=== PATIENT | male | born 1960 | race Caucasian/White ===

== ENCOUNTER 2020-07-09 21:04 | Inpatient (IN) | payer OTHER ==
[~2020-07-09] VITALS: Ht 172.7 cm; Wt 93.6 kg
[2020-07-09 21:06] VITALS: BP 135/77
[2020-07-09 21:42] LABS: ABSOLUTE NEUTROPHILS 8.8 thou/uL (1.4-8.2); BASOPHILS 0.1 % (0.0-2.0); HEMATOCRIT 38.7 % (42.0-52.0); HEMOGLOBIN 12.4 gm/dL (14.0-18.0); LYMPHOCYTES 8.9 % (24.0-44.0); MCH 28.8 pg (26.0-34.0); MONOCYTES 4.8 % (1.0-8.0); PLATELET COUNT 233 thou/uL (150-400); POLYS 86.2 % (36.0-66.0); RBC 4.31 mil/uL (4.50-6.00); RDW 15.6 % (10.5-14.5); WBC 10.2 thou/uL (4.0-11.0)
[2020-07-09 21:44] LABS: BE(vivo) 16.1 mmol/L (-2 to +3); HCO3 52.4 mmol/L (22.0-26.0); PO2 155.4 mmHg (80.0-100.0); sO2 97.9 % (92.0-98.0)
[2020-07-09 21:45] LABS: PCO2 173.5 mmHg (35.0-45.0); pH 7.098 (7.360-7.450)
[2020-07-09 21:50] LABS: PROTIME 10.4 Seconds (9.3-11.4)
[2020-07-09 21:51] LABS: ALBUMIN 3.1 g/dL (3.4-5.0); BUN 16 mg/dL (7-18); CALCIUM 9.5 mg/dL (8.5-10.1); CHLORIDE 98 mmol/L (98-107); CREATININE 0.6 mg/dL (0.7-1.3); GLUCOSE 212 mg/dL (74-106); POTASSIUM 4.4 mmol/L (3.5-5.1); SGOT 12 U/L (15-37); SGPT 35 U/L (30-65); SODIUM 142 mmol/L (136-145); TOTAL BILIRUBIN 0.5 mg/dL (0.2-1.0); TOTAL PROTEIN 7.7 g/dL (6.4-8.2)
[2020-07-09 21:55] LABS: CO2 > 45 mmol/L (21-32)
[2020-07-09] MEDS ORDERED: CARVEDILOL6.25 M1 PO (22:26)
[2020-07-09] MEDS ORDERED: PROTONIX40 M2 PO (22:27)
[2020-07-09] MEDS ORDERED: PROAIR HFA8.5 GM INH (22:30)
[2020-07-09] MEDS ORDERED: SYMBICORT160 MCG/4. INH (22:30)
[2020-07-09] MEDS ORDERED: TRAZODONE HCL50 MG PO (22:31)
[2020-07-09] MEDS ORDERED: HYDROXYZINE PAM50 MG PO (22:31)
[2020-07-09] MEDS ORDERED: OMEPRAZOLE40 MG PO (22:31)
[2020-07-09 22:35] LABS: URINE BILIRUBIN NEGATIVE (Negative); URINE BLOOD TRACE (Negative); URINE CLARITY CLEAR; URINE COLOR YELLOW; URINE GLUCOSE-RANDOM* NEGATIVE (Negative); URINE KETONES NEGATIVE (Negative); URINE LEUKOCYTES-REFLEX NEGATIVE (Negative); URINE NITRITE-REFLEX NEGATIVE (Negative); URINE PROTEIN (DIPSTICK) 1+ (Negative); URINE SPECIFIC GRAVITY >= 1.030 (1.005-1.035); URINE UROBILINOGEN 0.2 E.U./dl (0.2-1.0)
[2020-07-09 22:49] LABS: BE(vivo) 17.3 mmol/L (-2 to +3); HCO3 54.8 mmol/L (22.0-26.0); PO2 352.3 mmHg (80.0-100.0); pH 7.056 (7.360-7.450); sO2 99.5 % (92.0-98.0)
[2020-07-09 22:50] LABS: PCO2 199.8 mmHg (35.0-45.0)
[2020-07-09 23:03] LABS: BACTERIA-REFLEX 1-9 Few /HPF (None Seen); CRYSTALS None Seen /LPF (None Seen); FINE GRANULAR CASTS 4-10 Moderate /LPF (None Seen); HYALINE CASTS 4-10 Moderate /LPF (None Seen); MUCUS >6 Heavy strn/LPF (None Seen); SQUAMOUS 4-10 Moderate /LPF (0-3); URINE RBC 3-10 Few /HPF (0-2); URINE WBC-REFLEX 0-5 Rare /HPF (0-5)
[2020-07-09 23:38] VITALS: BP 113/79
[2020-07-10] VITALS (113 sets, daily range): BP systolic 78–159; BP diastolic 49–121
--- NOTE | 2020-07-10 01:17 | NUR ---
0010-ADMIT TO UNIT FROM ED. PT INTUBATED, ON PROPOFOL, OZUNA ON PLACE. COPIOUS THICK, CLEAR ORAL AND THICK, MONTALVO INLINE SECRETIONS. OG PLACED TO LIS WITH LIGHT GREEN SECRETIONS. OBVIOUS TREMORING, SHAKING, AND MOVING OF LEGS. STARTED ON VERSED AND MAINTENCE FLUIDS. 0055-SPOKE WITH DR. SARGENT ABOUT ADMIT, NO CHANGES TO VENT SETTINGS.
[2020-07-10 05:15] LABS: HEMATOCRIT 29.9 % (42.0-52.0); MCH 28.6 pg (26.0-34.0); MCHC 31.7 g/dL (28.0-37.0); MCV 90.1 fL (80.0-100.0); RBC 3.31 mil/uL (4.50-6.00); RDW 15.8 % (10.5-14.5); WBC 13.3 thou/uL (4.0-11.0)
[2020-07-10 05:28] LABS: HEMOGLOBIN 9.5 gm/dL (14.0-18.0)
[2020-07-10 05:43] LABS: ALBUMIN 2.3 g/dL (3.4-5.0); CREATININE 0.5 mg/dL (0.7-1.3); TOTAL BILIRUBIN 0.6 mg/dL (0.2-1.0); TOTAL PROTEIN 5.6 g/dL (6.4-8.2)
--- NOTE | 2020-07-10 07:36 | NUR ---
ORDERS FOR EVAL AND TREAT. Pt IS INTUBATED AND SEDATED. WILL HOLD ON P.T EVAL AND AWAIT NEW ORDERS WHEN APPROPRIATE
--- NOTE | 2020-07-10 08:24 | NUR ---
If remains intubated > 48hr, recommend start enteral nutrition of vital HP at 30ml/hr (3 cartons per day if no feeding pump)
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
--- NOTE | 2020-07-10 13:31 | NUR ---
FAXED CLINICAL UPDATE TO [facility] SPOKE WITH KASHIF IN ADM SHE RECEIVED UPDATE.
--- NOTE | 2020-07-10 13:40 | HC ---
[facility] [place] [address] CONSULTATION Name: JIMMY TREVINO Room #: 240-P ADM IN M.R.#: [id number] Admission: 07/09/20 Attend Phys: Zev Arvizu MD Discharge: Date of : 58 Report #: [id number] THIS REPORT FOR: cc: FAM - Family physician unknown FAM - Family physician unknown Reji Macedo MD ~ DATE OF SERVICE: 07/10/2020 INFECTIOUS DISEASE CONSULTATION ATTENDING PHYSICIAN: Dr. Lalo Keenan REASON FOR EVALUATION: Pneumonitis, complicated by respiratory failure with a marked elevation of carbon dioxide. HISTORY OF PRESENT ILLNESS: Chart reviewed, patient examined. The patient is a 59-year-old gentleman with extensive medical history, has underlying severe COPD with a baseline requirements of 4 liters per nasal cannula as well as some hypertension. He does reside in a facility, apparently was hospitalized in May of last year, diagnosed with COVID-19 infection, apparently date of testing was 06/16/2020. He did receive dexamethasone, remdesivir and baricitinib. He was found unresponsive, showed to be markedly obtunded, and was found to be hypoxemic with saturations in the low 80s on 4 liters, presented to the Emergency Room, was found to have some x-ray changes as well as CT changes, none of which suggest a PE, but some bilateral infiltrates, may be resolving pneumonitis due to COVID. Urinalysis was otherwise unremarkable. D-dimer was in the normal range, still have positive COVID test. Initial ABGs: pH 7.098, pCO2 of 173.5, pO2 of 155.4 on 5 liters, was empirically started on antibiotics with Zosyn and vancomycin as well as dexamethasone. At this point, he is intubated. He is sedated. ALLERGIES: None known. CURRENT MEDICATIONS: Include enoxaparin, vancomycin, famotidine, Zosyn, propofol, dexamethasone, sounds Versed as well. ALLERGIES: None known medicines. PAST MEDICAL HISTORY: As described above, history of previous skull fracture, has known COPD, hypertension, peptic ulcer disease, reflux. SOCIAL HISTORY: Ethanol abuse in the past. Former smoker. Previous marijuana use. FAMILY HISTORY: Noncontributory. [address] [address] CONSULTATION Name: URIELJIMMY PERDOMO Room #: [address] [place] [address] IN ..#: [id number] Admission: 07/09/20 Attend Phys: Zev Arvizu MD Discharge: Date of : 58 Report #: [id number] REVIEW OF SYSTEMS: Not obtainable. PHYSICAL EXAMINATION: GENERAL: Appears chronically ill, undernourished older than his stated age. VITAL SIGNS: Temperature 99.3 oral, pulse 97, respirations 21, blood pressure 108/55. SKIN: Warm, dry, no rashes. HEENT: ET, OG in place. NECK: Supple. LUNGS: Diminished overall, few scattered coarse breath sounds. ABDOMEN: Mildly distended, soft. There are no apparent peritoneal signs. EXTREMITIES: There is a PICC line in the right upper extremity. GENITOURINARY AND RECTAL: Deferred. LABORATORY DATA: Blood cultures sterile thus far. Chest x-ray from this morning shows improved aeration, mild atelectasis and pneumonia remains in the lung bases. Electrolytes: Sodium 146, potassium 4.0, chloride 106, bicarbonate is 37, anion gap of 3, BUN and creatinine 13 and 0.5, glucose 120. LFTs unremarkable. Albumin 2.3. Total protein 5.6. CTA chest PE protocol, no evidence of PE, moderate emphysematous changes in both lungs. Ground glass opacities in the mid upper lobe and lung bases, compression fracture of the mid thoracic spine, suspected chronic healed right rib fractures. CBC: White count of 13.3, H and H 9.5 that is down from 12.3, hematocrit 29.9, platelets of 184. Coronavirus PCR was still positive. ProBNP of 77. Urinalysis, 0-5 white cells. D-dimer 0.37. Procalcitonin less than 0.05. Lactic acid 1.0. ASSESSMENT AND PLAN: Pneumonitis, suspect acute on chronic problem with marked hypercarbia slid to respiratory failure in a patient that was already severely compromised certainly could have aspirated in this setting, it is difficult to interpret x-ray, sometimes due to the deranged architecture of the lungs. At this point, we will continue empiric therapy with vancomycin and Zosyn should give this reasonable coverage. If indeed this is sequelae to the COVID-19, I think there is any role for antiviral therapy at this point is more typical immune system response. Continue corticosteroids. He remains critically ill. It is difficult to ascertain whether he will survive this. <ELECTRONICALLY SIGNED> By: Reji Macedo MD 07/10/20 1340 0935 1155 Reji Macedo MD /nt
[2020-07-10 17:30] LABS: BE(vivo) 13.2 mmol/L (-2 to +3); HCO3 38.2 mmol/L (22.0-26.0); pH 7.492 (7.360-7.450); sO2 90.5 % (92.0-98.0)
[2020-07-10 17:31] LABS: PO2 55.1 mmHg (80.0-100.0)
--- NOTE | 2020-07-10 18:31 | NUR ---
VAT PLACED A 5FRTLCL IN RT IJ. PLEASE SEE NI FOR DETAILS
--- NOTE | 2020-07-10 19:16 | NUR ---
assumed care of pt 0700. pt not following commands during sedation vacation but does withdrawl from pain. began showing signs for tremors and what thought to possibly be seizure activity. providers aware, thinking more related to alcohol abuse histoy...1230 updated daughter on pt status, consent gained for central line. 1800 critical abg paiged to Dr. Hollis, orders recieved. adequate output. afebrile. progressing in plan of care.
[2020-07-11] VITALS (73 sets, daily range): BP systolic 56–137; BP diastolic 21–92
[2020-07-11 04:27] LABS: MCH 28.8 pg (26.0-34.0); MCHC 32.2 g/dL (28.0-37.0); MCV 89.4 fL (80.0-100.0); RBC 3.47 mil/uL (4.50-6.00); RDW 15.6 % (10.5-14.5); WBC 6.2 thou/uL (4.0-11.0)
[2020-07-11 04:33] LABS: CALCIUM 8.9 mg/dL (8.5-10.1); CREATININE 0.7 mg/dL (0.7-1.3); POTASSIUM 3.4 mmol/L (3.5-5.1)
--- NOTE | 2020-07-11 05:50 | NUR ---
SEDATION TITRATED TO KEEP BP IN ORDERED RANGE BUT ALSO TO KEEP PT COMFORTABLE. TREMORS NOTED AFTER SEDATION DOWN TO PROPOFOL 20MCG/KG/MIN, FENTANYL 50MCG/HR, VERSED 2MG/HR. ALSO NOTED SIGNIFICANT INCREASE IN BP. VERSED TITRATED BACK UP TO KEEP PT COMFORTABLE AND TREMORS DECREASED. PT DID NOT FOLLOW COMMANDS OR HAVE PURPOSEFUL MOVEMENTS AT TIME OF DECREASED SEDATION.
[2020-07-11 07:09] LABS: GLYCOHEMOGLOBIN (HGB A1C) 5.6 % (4.8-5.6)
--- NOTE | 2020-07-11 18:42 | NUR ---
PATIENT NOT PROGRESSING TOWARDS PLAN OF CARE. SEDATION VACATION TODAY. PATIENT OPENS EYES. NO COMMANDS.
[2020-07-11 19:56] LABS: BE(vivo) 8.2 mmol/L (-2 to +3); HCO3 37.2 mmol/L (22.0-26.0); PO2 95.1 mmHg (80.0-100.0); sO2 96.4 % (92.0-98.0)
[2020-07-11 19:58] LABS: PCO2 73.8 mmHg (35.0-45.0)
[2020-07-12] VITALS (61 sets, daily range): BP systolic 92–142; BP diastolic 48–88
[2020-07-12 04:45] LABS: HEMATOCRIT 31.4 % (42.0-52.0); HEMOGLOBIN 10.1 gm/dL (14.0-18.0); MCH 28.9 pg (26.0-34.0); MCHC 32.2 g/dL (28.0-37.0); MCV 89.8 fL (80.0-100.0); RBC 3.49 mil/uL (4.50-6.00); RDW 15.8 % (10.5-14.5); WBC 5.8 thou/uL (4.0-11.0)
[2020-07-12 05:31] LABS: CALCIUM 8.8 mg/dL (8.5-10.1); CREATININE 0.5 mg/dL (0.7-1.3); POTASSIUM 3.3 mmol/L (3.5-5.1)
--- NOTE | 2020-07-12 06:51 | NUR ---
PT BECOMES AGITATED AND EXHIBITS TREMORS WITH ALL NURSING CARES, WILL STOP AFTER BEING LEFT ALONE FOR SOME TIME. DOES NOT FOLLOW COMMANDS, WITHDRAWS TO PAIN, PUPILS REACTIVE
--- NOTE | 2020-07-12 18:54 | NUR ---
PATIENT DOES NOT PROGRESS IN PLAN OF CARE. NO SIGNIFICANT EVENTS. SPOKE TO SISTER JOSSUE AND GAVE UP DATE ABOUT PATIENT STATUS.
[2020-07-13] VITALS (56 sets, daily range): BP systolic 98–150; BP diastolic 54–90
[2020-07-13 04:25] LABS: HEMATOCRIT 31.2 % (42.0-52.0); MCH 28.5 pg (26.0-34.0); MCHC 32.1 g/dL (28.0-37.0); MCV 88.7 fL (80.0-100.0); RBC 3.52 mil/uL (4.50-6.00); RDW 16.3 % (10.5-14.5); WBC 5.2 thou/uL (4.0-11.0)
[2020-07-13 04:46] LABS: CALCIUM 8.4 mg/dL (8.5-10.1); CREATININE 0.5 mg/dL (0.7-1.3); POTASSIUM 3.2 mmol/L (3.5-5.1)
--- NOTE | 2020-07-13 06:11 | NUR ---
Patient remains on 40 FiO2 and a PEEP of 5. Does not tolerate sedation vacations. Vent alarms with high tidal volumes and inconsistent respires. Patient becomes tachycardiac and starts to tremor uncontrollably. Does not follow commands, track or have any purposeful movement. Postive gag and cough. VSS, adequate urine output. Remains on Versed, propofol and fentanyl gtt for vent management. Still requiring high mechanical support and close monitoring, therefore is not progessing towards goals.
--- NOTE | 2020-07-13 09:22 | NUR ---
Recommend start enteral nutrition. Changed goal rate to 40ml/hr or 4 cartons per day if no feeding pump.
--- NOTE | 2020-07-13 13:43 | NUR ---
ON-GOING ASSESSMENT: CM REVIEWED CHART. PT REMAINS ON THE VENT, 40 PERCENT FI02. PT IS NOT READY FOR WEANING YET. CM FAXED UPDATED CLINICAL TO [facility] FOR REHAB MEDIC[facility]. CM WILL CONTINUE TO FOLLOW TO ASSIST NEEDED.
--- NOTE | 2020-07-13 16:59 | NUR ---
1400 SEDATION VACATION DONE AND PT WILL NOD YES/NO TO QUESTIONS, FOLLOW SIMPLE COMMANDS IN ALL EXTREMITIES. WEANING SEDATION TOLERATED. STARTED ON TUBE FEEDING AND WATER FLUSHES. TOLERATING WELL. WILL CONTINUE TO MONITOR PATIENT.
[2020-07-14] VITALS (81 sets, daily range): BP systolic 89–190; BP diastolic 49–100
[2020-07-14 05:09] LABS: BE(vivo) 13.1 mmol/L (-2 to +3); HCO3 41.1 mmol/L (22.0-26.0); PO2 72.8 mmHg (80.0-100.0); pH 7.373 (7.360-7.450); sO2 93.6 % (92.0-98.0)
[2020-07-14 05:10] LABS: PCO2 72.3 mmHg (35.0-45.0)
[2020-07-14 05:16] LABS: HEMATOCRIT 32.5 % (42.0-52.0); HEMOGLOBIN 10.5 gm/dL (14.0-18.0); MCH 28.5 pg (26.0-34.0); MCHC 32.3 g/dL (28.0-37.0); MCV 88.3 fL (80.0-100.0); RBC 3.68 mil/uL (4.50-6.00); RDW 16.2 % (10.5-14.5); WBC 7.6 thou/uL (4.0-11.0)
[2020-07-14 05:26] LABS: ALBUMIN 2.4 g/dL (3.4-5.0); CALCIUM 8.8 mg/dL (8.5-10.1); CREATININE 0.6 mg/dL (0.7-1.3); MAGNESIUM 1.8 mg/dL (1.8-2.4); POTASSIUM 3.2 mmol/L (3.5-5.1); TOTAL BILIRUBIN 0.3 mg/dL (0.2-1.0); TOTAL PROTEIN 5.8 g/dL (6.4-8.2)
--- NOTE | 2020-07-14 06:37 | NUR ---
Vent settings unchanged. Patient remains on fentanyl, propofol, and versed for ventilation management. Patient would wake up and seem to shake head to simple questions. Moves all extremities. Still tremors entire body occasionally. Not progessing towards goals.
--- NOTE | 2020-07-14 14:14 | NUR ---
FAXED CLINICAL UPDATE TO [facility] RECEIVED CONFIRMATION AND SPOKE WITH KASHIF IN ADM.
--- NOTE | 2020-07-14 19:06 | NUR ---
PATIENT CONTINUING NURSING PLAN OF CARE. SOME PROGRESSION TODAY WITH CPAP TRIALING FOR 2 HOURS. PATIENT SEDATION CONTINUES. TOLERATING TUBE FEEDS WELL. NO CALLS FROM FAMILY ASKING FOR UPDATES.
[2020-07-15] VITALS (39 sets, daily range): BP systolic 86–152; BP diastolic 40–90
[2020-07-15 05:21] LABS: HEMATOCRIT 29.2 % (42.0-52.0); HEMOGLOBIN 9.5 gm/dL (14.0-18.0); MCHC 32.6 g/dL (28.0-37.0); RBC 3.28 mil/uL (4.50-6.00); RDW 16.5 % (10.5-14.5); WBC 5.1 thou/uL (4.0-11.0)
[2020-07-15 05:22] LABS: ANION GAP < 0 mmol/L (7-16); BUN 8 mg/dL (7-18); CALCIUM 8.5 mg/dL (8.5-10.1); CHLORIDE 105 mmol/L (98-107); CO2 42 mmol/L (21-32); CREATININE 0.5 mg/dL (0.7-1.3); GLUCOSE 123 mg/dL (74-106); POTASSIUM 3.4 mmol/L (3.5-5.1); SODIUM 146 mmol/L (136-145)
--- NOTE | 2020-07-15 06:16 | NUR ---
Weaned off of Versed gtt. Still on Fentanyl and propofol for vent management. No vent changes. VSS. Progressing towards goals. Plan to CPAP trial again today.
--- NOTE | 2020-07-15 09:56 | NUR ---
ON THE VENT, LIGHTLY SEDATED. DURING SEDATION VACATION PATIENT BECOMES TACHYCARDIC, FOLLOWS SOME COMMANDS BUT NOT CONSISTENTLY. VITALS STABLE AND ON FENTANYL GTT FOR PAIN. ASSESSMENT DOCUMENTED. TOLERATING TUBEFEEDING PER OGT WITH MINIMAL RESIDUALS. WILL CONTINUE WITH POC.
[2020-07-16] VITALS (35 sets, daily range): BP systolic 111–156; BP diastolic 66–95
[2020-07-16 06:34] LABS: HEMATOCRIT 34.1 % (42.0-52.0); HEMOGLOBIN 10.8 gm/dL (14.0-18.0); MCH 27.9 pg (26.0-34.0); MCHC 31.7 g/dL (28.0-37.0); MCV 87.9 fL (80.0-100.0); RBC 3.88 mil/uL (4.50-6.00); RDW 16.2 % (10.5-14.5); WBC 8.4 thou/uL (4.0-11.0)
[2020-07-16 06:44] LABS: CALCIUM 9.8 mg/dL (8.5-10.1); CREATININE 0.5 mg/dL (0.7-1.3)
[2020-07-16 06:45] LABS: POTASSIUM 3.6 mmol/L (3.5-5.1)
--- NOTE | 2020-07-16 07:30 | NUR ---
ASSUMMED CARE OF PATIENT FROM ANUSHKA ZABALA THE NIGHT NURSE AT 0645. SEDATION OFF AT 0650 AND PATIENT IS LOOKING AROUND, FOLLOWING SIMPLE COMMANDS. O2 SAT AND RESP RATE ARE STABLE, VSS, PLEASE REFER TO VS RECORD. PLACED BACK ON SEDATION.
[2020-07-16 09:14] LABS: BE(vivo) 15.4 mmol/L (-2 to +3); HCO3 42.3 mmol/L (22.0-26.0); PO2 81.3 mmHg (80.0-100.0); pH 7.431 (7.360-7.450); sO2 95.9 % (92.0-98.0)
[2020-07-16 09:15] LABS: PCO2 65.1 mmHg (35.0-45.0)
--- NOTE | 2020-07-16 09:30 | NUR ---
PATIENT PLACED ON CPAP AT 0815 WITH ABG'S DRAWN AT 0915. RESULTS NOTED AND PATIENT REMAINS ON CPAP AT THIS TIME. PRECEDEX AND FENTANYL DRIPS CONTINUE.
--- NOTE | 2020-07-16 10:26 | NUR ---
ASSUMMED CARE OF THIS PATIENT FROM THE NIGHT NURSE SHERICE AT 0700 TODAY. PATIENT IS ALERT AND COOPERATIVE. PROGRESSING TOWARDS OUTCOME GOALS. REPORT CALLED TO JENNIFER ZABALA ON 3W.
--- NOTE | 2020-07-16 12:45 | NUR ---
DR HANDY ROUNDED AND REVIEWED ABG'S AND WEANING PARAMATERS. PATIENT IS WEAK AND RESTLESS AT TIMES, KICKING FEET OUT OF BED. PLACED BACK AND VENT AND WILL WEAN PRECEDEX PATIENT TOLERATES IT. WILL CONTINUE TO MONITOR.
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
--- NOTE | 2020-07-16 19:16 | NUR ---
PATIENT IS PRORESSING TOWARDS OUTCOME GOALS HE IS TOLERATING CPAP TRIALS, INCREASING RATE OF TUBE FEEDING, AND VSS WITH DECREASING OF PRECEDEX. WILL CONTINUE TO MONITOR.
[2020-07-17] VITALS (31 sets, daily range): BP systolic 112–157; BP diastolic 61–90
[2020-07-17 06:11] LABS: HEMATOCRIT 32.6 % (42.0-52.0); HEMOGLOBIN 10.6 gm/dL (14.0-18.0); MCH 28.5 pg (26.0-34.0); MCHC 32.7 g/dL (28.0-37.0); MCV 87.2 fL (80.0-100.0); RBC 3.74 mil/uL (4.50-6.00); RDW 16.2 % (10.5-14.5); WBC 7.8 thou/uL (4.0-11.0)
[2020-07-17 06:31] LABS: CALCIUM 8.9 mg/dL (8.5-10.1); CREATININE 0.4 mg/dL (0.7-1.3); POTASSIUM 3.4 mmol/L (3.5-5.1)
--- NOTE | 2020-07-17 06:44 | NUR ---
No vent settings changes overnight. Patient restless throughout night, needing PRN ativan occasionally when calming down. No more visible tremors. Inconsistently follows commands and nods heads. Plan to CPAP today. Progressing towards plans of care.
[2020-07-17 09:17] LABS: BE(vivo) 12.3 mmol/L (-2 to +3); HCO3 38.9 mmol/L (22.0-26.0); PCO2 60.7 mmHg (35.0-45.0); PO2 69.4 mmHg (80.0-100.0); pH 7.425 (7.360-7.450); sO2 93.8 % (92.0-98.0)
--- NOTE | 2020-07-17 14:28 | NUR ---
on-going assessment: CM REVIEWED CHART. PT REMAINS SEDATED ON THE VENT. PT IS ON PRECEDEX GTT. PER PULM PT IS TOLERATING CPAP BUT NOT READY TO EXTUBATE AT THIS TIME DUE TO MENTAL STATUS. CM WILL CONTINUE TO FOLLOW TO ASSIST NEEDED.
--- NOTE | 2020-07-17 18:20 | NUR ---
EXTUBATED AT 1245 FOLLOWING SUCCESSFUL WEANING TRIAL. FOLLOWING COMMANDS AND VERBALIZING. VOICE VERY GRAVELY AND HARD TO UNDERSTAND. VERY AGITATED AND COMBATIVE AT TIMES. PRECEDEX CONTINUES AT 1.4 MCG/KG/HR. RECIEVED 2MG DOSE OF ATIVAN WHEN EXTREMELY AGITATED. REQUESTED TO GO SMOKE A CIGARETTE AND TO MOVE HIS BED UP AGAINST THE WALL. REORIENTED PATIENT TO PLACE AND EXPLAINED WHY HE COULD NOT SMOKE OR MOVE HIS BED. CONTINUES TO BE COMBATIVE AT TIMES.
[2020-07-18] VITALS (32 sets, daily range): BP systolic 128–160; BP diastolic 72–89
[2020-07-18 05:44] LABS: HEMATOCRIT 35.2 % (42.0-52.0); HEMOGLOBIN 11.5 gm/dL (14.0-18.0); MCH 28.6 pg (26.0-34.0); MCHC 32.8 g/dL (28.0-37.0); MCV 87.1 fL (80.0-100.0); RBC 4.04 mil/uL (4.50-6.00); RDW 16.1 % (10.5-14.5)
[2020-07-18 06:05] LABS: CALCIUM 9.6 mg/dL (8.5-10.1); CREATININE 0.5 mg/dL (0.7-1.3); POTASSIUM 3.3 mmol/L (3.5-5.1)
--- NOTE | 2020-07-18 11:44 | NUR ---
SPOKE WITH SPEECH AT 1144. WILL REVISIT ON MONDAY AFTER DECIDING PATIENT DOES NOT SEEM TO BE READY FOR SWALLOW EVAL BASED ON PATIENT'S COMBATIVE STATE AND CONFUSION.
--- NOTE | 2020-07-18 18:02 | NUR ---
ASSUMED CARE AT 0700. PATIENT SLOWLY PROGRESSING TOWARDS THE PLAN OF CARE. PRECEDEX GTT STILL MAXED OUT HOWEVER PATIENT COMBATIVE AT TIMES.
[2020-07-19] VITALS (32 sets, daily range): BP systolic 107–154; BP diastolic 68–99
[2020-07-19 05:00] LABS: HEMATOCRIT 36.8 % (42.0-52.0); HEMOGLOBIN 12.1 gm/dL (14.0-18.0); MCH 28.6 pg (26.0-34.0); MCHC 32.9 g/dL (28.0-37.0); MCV 86.7 fL (80.0-100.0); RBC 4.25 mil/uL (4.50-6.00); RDW 16.1 % (10.5-14.5); WBC 7.3 thou/uL (4.0-11.0)
[2020-07-19 05:05] LABS: CALCIUM 9.1 mg/dL (8.5-10.1); CREATININE 0.4 mg/dL (0.7-1.3)
[2020-07-19 05:43] LABS: POTASSIUM 3.2 mmol/L (3.5-5.1)
--- NOTE | 2020-07-19 17:19 | NUR ---
ASSUMED CARE AT 0700. PATIENT CONTINUES TO BE COMBATIVE AT TIMES AND ATTEMPTS TO LEAVE BED MULTIPLE TIMES DESPITE EDUCATION. PATIENT SLOWLY PROGRESSING TOWARDS THE PLAN OF CARE EVIDENCED BY IMPROVED SWALLOWING AND EATING.
[2020-07-20] VITALS (22 sets, daily range): BP systolic 87–145; BP diastolic 49–81
[2020-07-20 05:45] LABS: HEMATOCRIT 36.4 % (42.0-52.0); HEMOGLOBIN 11.8 gm/dL (14.0-18.0); MCH 28.3 pg (26.0-34.0); MCHC 32.3 g/dL (28.0-37.0); MCV 87.7 fL (80.0-100.0); RBC 4.15 mil/uL (4.50-6.00); RDW 16.3 % (10.5-14.5); WBC 8.1 thou/uL (4.0-11.0)
[2020-07-20 06:02] LABS: CREATININE 0.4 mg/dL (0.7-1.3); POTASSIUM 3.4 mmol/L (3.5-5.1)
[2020-07-20 10:05] LABS: MAGNESIUM 1.8 mg/dL (1.8-2.4); PHOSPHORUS 3.6 mg/dL (2.5-4.9)
--- NOTE | 2020-07-20 10:53 | NUR ---
POC UPDATE: PT IS RECEIVING COVID THERAPIES. ON 4.5 O2 NC. PT PRESENTS W/COMBATIVENSS. CONT W/PRECEDX. PT HAS IMPROVED SWALLOWING AND EATING, PLANS FOR ST EVAL TODAY.
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
[2020-07-21] VITALS (74 sets, daily range): BP systolic 36–151; BP diastolic 21–81
[2020-07-21 05:38] LABS: HEMATOCRIT 36.3 % (42.0-52.0); HEMOGLOBIN 11.9 gm/dL (14.0-18.0); MCH 28.8 pg (26.0-34.0); MCHC 32.9 g/dL (28.0-37.0); MCV 87.5 fL (80.0-100.0); RBC 4.14 mil/uL (4.50-6.00); RDW 16.1 % (10.5-14.5); WBC 9.5 thou/uL (4.0-11.0)
[2020-07-21 06:14] LABS: CALCIUM 9.5 mg/dL (8.5-10.1); CREATININE 0.5 mg/dL (0.7-1.3); MAGNESIUM 1.9 mg/dL (1.8-2.4); PHOSPHORUS 3.4 mg/dL (2.5-4.9); POTASSIUM 3.5 mmol/L (3.5-5.1)
--- NOTE | 2020-07-21 06:35 | NUR ---
PT REQUIRING ATIVAN TO CALM AGITATION, WEANED PRECEDEX IN ORDER FOR PT TO BE AWAKE DURING DAY TO SEE ST AND PSYCH CURRENTLY AWAKE AND CALLING OUT BUT IS ORIENTED TO SELF AND IS ABLE TO INTERACT SOMEWHAT APPOPRIATELY WITH STAFF. THIS RN IS ABLE TO REORIENT PT TO SITUATION AND CALM HIM WITH REASSURANCE. PT DOES NOT SEEM TO HAVE SHORT TERM MEMORY, BUT IS NOT CURRENTLY ATTEMPTING TO CLIMB OUT OF BED. HE WISHES TO GO HOME AND GET OUT OF BED AND GET IN THE CHAIR. EDUCATED PT THAT PHYSICAL THERAPY WILL HAVE TO WORK WITH HIM FIRST
--- NOTE | 2020-07-21 11:40 | EKG ---
[address] [place] [address] ELECTROCARDIOGRAM REPORT Name: URIELJIMMY PERDOMO Room #: 240-P ADM IN M.R.#: [id number] Admission: 07/09/20 Attend Phys: Zev Arvizu MD Discharge: Date of : 58 Report #: [id number] [facility] Test Date: 2020-07-21 Test Time: 10:31:29 Pat Name: JIMMY TREVINO Department: Room: 240 P Gender: M Portal Administrator: ZARA : 1960 Requested By: Ricci Gan Order Number: [id number] : Colten Villafuerte Measurements Intervals [place] Rate: 158 P: 0 RI: 119 QRS: -90 QRSD: 101 T: 52 QT: 332 QTc: 539 Interpretive Statements Suspect Atrial Flutter with 2"1 block Abnormal R-wave progression, late transition Prolonged QT interval Compared to ECG 01/06/2016 16:15:54 Prolonged QT interval now present Electronically Signed On 07-21-2020 11:40:47 TERMINAL COMPUTER OPERATOR by Colten Villafuerte [email or web address] <ELECTRONICALLY SIGNED> By: Colten Villafuerte MD, [facility] 07/21/20 1140 1031 1031 Colten Villafuerte MD, [facility] /EPI
[2020-07-21 13:29] LABS: CHOLESTEROL 216 mg/dL (<200); HDL CHOLESTEROL 32 mg/dL (>40); LDL CHOLESTEROL 150 mg/dL (<100); TC:HDL 6.8 Ratio (Not establshd); TRIGLYCERIDE 171 mg/dL (<150); VLDL 34 mg/dL (<40)
[2020-07-21 13:31] LABS: SERUM ASSESSMENT Clear
--- NOTE | 2020-07-21 15:39 | NUR ---
Recived notification pt c.dif positive Dr. Vidhya olson [phone] dr lora at bedside. noting dehydration as possible cause of heartrate. orders to increase fluid rate to 150 ml/hr for 6 hrs and monitor heartrate.
--- NOTE | 2020-07-21 20:02 | NUR ---
0700 assumed care of pt. pt had multiple stools throughout the morning. stool smaple attained. positive for c.diff ID notified new abx given. cardiology consulted for tachichardia. cardizem gtt started per Christo. pt recieved diet today. 25% of lunch. adequate output.
[2020-07-21 20:25] LABS: BE(vivo) 4.3 mmol/L (-2 to +3); HCO3 32.8 mmol/L (22.0-26.0); PO2 70.9 mmHg (80.0-100.0); sO2 92.2 % (92.0-98.0)
[2020-07-21 20:27] LABS: PCO2 67.2 mmHg (35.0-45.0); pH 7.307 (7.360-7.450)
--- NOTE | 2020-07-21 21:56 | NUR ---
NOTIFIED DR. VASQUEZ OF HR STILL 120'S-130'S AFTER BEIN CLEANED UP AND RESTING. PT RR 3-40, CARDIZEM GTT MAXED, BP STABLE ON GTT. DISCUSSED POSSIBLE OPTIONS AFTER 500CC NS BOLUS DURING DAY. ORDERS RECIEVED TO GIVE 40 MG IV LASIX X1 AND CHECK POTASSIUM LEVEL AND RECHECK VIA PROTOCOL. PT EF IS UNKNOWN AT THIS TIME. DISCUSSION WITH DR. VASQUEZ AROUND 2009. CALL TO DR. SARGENT REGARDING RR AND CONCERN FOR PT STATUS. CALL BACK AROUND 2030: GAVE STATUS UPDATE INCLUDING PEDRO ORDERS, RR 40'S, ABG RESULTS INCLUDING CRITICALS, AND THIS RNS CONCERN FOR ASPIRATION. ORDERS RECIEVED FOR A CXR IN AM, START BIPAP, MAY RUN PRECEDEX IF PT GETS ANXIOUS. ALL THIS COMMUNICATED TO RN WHEN PASSING CARE
[2020-07-22] VITALS (81 sets, daily range): BP systolic 71–138; BP diastolic 34–81
[2020-07-22] LABS: BE(vivo) 2.4 mmol/L (-2 to +3); HCO3 28.6 mmol/L (22.0-26.0); PO2 150.9 mmHg (80.0-100.0); pH 7.367 (7.360-7.450); sO2 98.9 % (92.0-98.0)
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
[2020-07-22 05:12] LABS: HEMATOCRIT 35.8 % (42.0-52.0); HEMOGLOBIN 11.4 gm/dL (14.0-18.0); MCH 28.4 pg (26.0-34.0); MCHC 31.9 g/dL (28.0-37.0); MCV 89.1 fL (80.0-100.0); RBC 4.02 mil/uL (4.50-6.00); RDW 16.7 % (10.5-14.5); WBC 11.8 thou/uL (4.0-11.0)
[2020-07-22 05:20] LABS: CREATININE 0.7 mg/dL (0.7-1.3); POTASSIUM 3.8 mmol/L (3.5-5.1)
--- NOTE | 2020-07-22 09:25 | NUR ---
Recommend TPN 15% dex, 7% AA and 2.9% lipids at 80ml/hr
--- NOTE | 2020-07-22 10:48 | 2DMMODE ---
[facility] [place] [address] 2 D/M-MODE ECHOCARDIOGRAM Name: JIMMY TREVINO Room #: 240-P ADM IN M.R.#: [id number] Admission: 07/09/20 Attend Phys: Zev Arvizu MD Discharge: Date of : 58 Report #: [id number] THIS REPORT FOR: cc: FAM - Family physician unknown FAM - Family physician unknown Colten Villafuerte MD [facility] ~ APPROVED REPORT Study performed: 07/22/2020 09:20:24 EXAM: Study attempted Patient Location: In-Patient Room #: 240 Status: routine BSA: 2.07 HR: 84 bpm BP: 87/60 mmHg Other Information Study Quality: Technically Limited Left Ventricle Normal left ventricle size Normal wall thickness 30-35% Right Ventricle <Conclusion> Limited/single view study , patient noncompliant with the study. Single view/parasternal long axis, Global hypokinesis ejection fraction- 30-35%. Unable to make further comments. <ELECTRONICALLY SIGNED> By: Colten Villafuerte MD, FAC 07/22/20 1048 1048 Colten Villafuerte MD, FACC /INF
--- NOTE | 2020-07-22 20:18 | NUR ---
PATIENT OFF BiPAP AT 0800 TO 4L N/C. RESPIRATORY RATE AND EFFORT REMAINED STABLE; PATIENT HAD EPISODES OF AGITATION / IMPULSIVITY - ATTEMPTED TO GET UP OUT OF BED MULTIPLE TIMES, BECAME AGGRESSIVE AND PHYSICAL WITH NURSES - PRECEDEX'D WAS INCREASED TO MAX DOSE INTERMITTENTLY. 2 ATIVAL WAS ALSO GIVEN. SPEECH RE-EVALUATED PATIENT DUE TO ASPIRATION CONCERNS - PER SPEECH PATIENT NPO EXCEPT FOR MEDS IN PUDDING. VITAL SIGNS STABLE EXCEPT FOR OCCASIONAL HYPOTENSIVE EPISODES WHEN PRECEDEX RATE IS ICREASED.
--- NOTE | 2020-07-22 22:59 | NUR ---
PT BECOMING AGITATED, THROWING LEGS OFF BED, SAYING "LET ME GO" YELLING OBSCENITIES AND RACIAL SLURS AT STAFF. PRECEDEX INCREASED AND ATIVAN GIVEN.
[2020-07-23] VITALS (49 sets, daily range): BP systolic 74–123; BP diastolic 35–70
[2020-07-23 04:26] LABS: CREATININE 0.4 mg/dL (0.7-1.3); POTASSIUM 3.7 mmol/L (3.5-5.1)
[2020-07-23 04:55] LABS: HEMATOCRIT 32.2 % (42.0-52.0); HEMOGLOBIN 10.6 gm/dL (14.0-18.0); MCH 29.3 pg (26.0-34.0); MCHC 32.8 g/dL (28.0-37.0); MCV 89.1 fL (80.0-100.0); RBC 3.61 mil/uL (4.50-6.00); RDW 16.8 % (10.5-14.5); WBC 9.4 thou/uL (4.0-11.0)
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
--- NOTE | 2020-07-23 15:27 | NUR ---
S/W DTR JOSSUE TO PROVIDE A CONDITION UPDATE & TO PROVIDE EMOTIONAL SUPPORT. DC HISTOLOGIST TO FAX AN UPDATE TO [facility]. PT REMAINS RESTLESS AND AGITATED ONCE CARES ARE BEING PROVIDED.
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
--- NOTE | 2020-07-23 16:41 | NUR ---
FAXED CLINICAL UPDATES TO [facility]. LEFT MESSAGE FOR KASHIF/INTAKE TO CONFIRM THEY RECEIVED. [facility] P [phone]; FAX [phone]; INTAKE [phone]
[2020-07-24] VITALS (34 sets, daily range): BP systolic 101–140; BP diastolic 55–79
--- NOTE | 2020-07-24 03:05 | NUR ---
ASSESSMENT: PT REMAIN ALERT AND ORIENT TIMES TWO. CONFUSED TO SITUATION AND PLACE. PT WAS CALM AND COOPERATIVE DURING THE BEGINNING OF THE SHIFT. WRIST RESTRAINTS REMAIN ON. APPROXIMATELY 0000, PT BEGAN TO GET AGITATED, NOT FOLLOWING COMMANDS AND PULLING HIS BLANKETS OFF ONTO THE FLOOR. ATIVAN 2MG WAS GIVEN WITH GOOD RESULTS, PT IS SLEEPING, EASY TO AROUSE AND IS MUCH MORE CALMER. PT HAD A LOW GRADE TEMP OF 99.0 AT THE BEGINNING OF THE SHIFT WHICH HAS SUBSIDED. PRECEDEX INFUSING AT 0.5/MG/MIN. 4 LITERS OF O2 PER NC REMAINS AT THIS TIME, NO USE OF BIPAP THUS FAR. FECAL MANAGEMENT SYSTEM INTACT, OZUNA WITH DARK/SEDIMENT OUTPUT. REMAIN NPO X MEDS AT THIS TIME. VSS, AFEBRILE. RIGHT IJ TL INTACT YET SLOW TO DRAW. SLOW PROGRESS TOWARDS DC GOALS,. WILL CONTINUE TO MONITOR.
[2020-07-24 05:27] LABS: HEMATOCRIT 35.7 % (42.0-52.0); HEMOGLOBIN 11.5 gm/dL (14.0-18.0); MCH 28.6 pg (26.0-34.0); MCHC 32.2 g/dL (28.0-37.0); RBC 4.02 mil/uL (4.50-6.00); RDW 16.5 % (10.5-14.5); WBC 12.4 thou/uL (4.0-11.0)
[2020-07-24 05:29] LABS: CALCIUM 9.6 mg/dL (8.5-10.1); CREATININE 0.5 mg/dL (0.7-1.3); POTASSIUM 4.1 mmol/L (3.5-5.1)
[2020-07-24 08:34] LABS: MAGNESIUM 1.9 mg/dL (1.8-2.4); PHOSPHORUS 2.9 mg/dL (2.6-4.7)
[2020-07-24 09:46] LABS: ALBUMIN 2.4 g/dL (3.4-5.0); DIRECT BILIRUBIN < 0.1 mg/dL (<0.1-0.2); LIPASE 88 U/L (73-393); SGOT 13 U/L (15-37); SGPT 33 U/L (16-63); TOTAL BILIRUBIN 0.2 mg/dL (0.2-1.0)
--- NOTE | 2020-07-24 15:58 | NUR ---
PT IS PROGRESSING TOWARDS DISCHARGE, RN COMMUNICATED WITH SLT/ REGARDING PLAN OF CARE FOR THE PT. CURRENT CONCERN FOR THE PT IS THAT PT IS TOO SEDATED, MD STATED THAT HAVING PT OFF OF PRECEDEX IS PRIORITY BELIEVING PTS CURRENT MENTATION IS NOT BASELINE, AND IN ORDER FOR PT TO PROGRESS PT NEEDS TO BE OFF OF SEDATION AND NEEDS TO BE WORKED UP BY CARETEAM MEMBERS. WITH THAT BEING SAID, IF NEEDED, HALDOL IS FIRST CHOICE, ATIVAN SECOND. RN WILL COMMUNICATE AND FOLLOW ACCORDINGLY. THUS, PEGTUBE IS NOT SOUGHT AFTER THIS TIME, AND SLT WILL CONTINUE TO WORK UP WITH PT. RN WILL FOLLOW THIS CAREPLAN AND UPDATE MD NECESSARY. DUE TO CLEARER PICTURE AND GOAL FOR PT CARE, PT IS PROGRESSING TOWARDS DISCHARGE
[2020-07-24 17:06] LABS: URINE BILIRUBIN NEGATIVE (Negative); URINE BLOOD 1+ (Negative); URINE CLARITY CLEAR; URINE COLOR YELLOW; URINE GLUCOSE-RANDOM* NEGATIVE (Negative); URINE KETONES NEGATIVE (Negative); URINE LEUKOCYTES-REFLEX NEGATIVE (Negative); URINE NITRITE-REFLEX NEGATIVE (Negative); URINE PROTEIN (DIPSTICK) NEGATIVE (Negative); URINE SPECIFIC GRAVITY 1.015 (1.005-1.035); URINE UROBILINOGEN 0.2 E.U./dl (0.2-1.0)
[2020-07-24 17:13] LABS: BACTERIA-REFLEX 1-9 Few /HPF (None Seen); CASTS None Seen /LPF (None Seen); CRYSTALS None Seen /LPF (None Seen); SQUAMOUS None Seen /LPF (0-3); URINE RBC None Seen /HPF (0-2); URINE WBC-REFLEX 0-5 Rare /HPF (0-5)
--- NOTE | 2020-07-24 22:22 | NUR ---
ASSUMED CARE OF PATIENT AT 1930. PATIENT IS AWAKE, BUT CANNOT UNDERSTAND WHAT HE IS SAYING. HE CAN SAY HIS LAST NAME, WHICH I CAN UNDERSTAND. OXYGEN 4 LITERS PER NC. TPN 80 ML PER HOUR PER RIJ.
[2020-07-25] VITALS (20 sets, daily range): BP systolic 79–137; BP diastolic 47–88
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
--- NOTE | 2020-07-25 10:43 | NUR ---
PT IS PROGRESSING TOWARDS DISCHARGE, APPEARS TO HAVE CLEARER MIND TODAY THOUGH IT IS APPARENT THAT THE PT IS STILL VERY FORGETFUL WELL RESTLESS/IMPULSIVE. PT IS DIRECTABLE. RN IS PROVIDING PROM TODAY. PT'S PRIMARY CONCERN TODAY IS TO MOVE OUT TO THE RECLINER. RN REMINDED PT THAT DUE TO FALL RISKS PT IS NOT SUPPOSED TO MOVE. HALDOL/ATIVAN HAD TO BE GIVEN R/T ANXIETY/RESTLESSNESS. PT STATED GRATITUDE FOR THE PROM. PT WAS SEEN COUGHING FEW TIMES AFTER APPLE SAUCE. SMALL BM LEAKAGE AROUND FMS WAS CLEANED UP. Q2H TURNS BEING MAINTAINED. CARVEDILOL WAS DC'D AND TOPROLXL QD WAS STARTED
[2020-07-25 12:54] LABS: BE(vivo) 6.7 mmol/L (-2 to +3); HCO3 33.5 mmol/L (22.0-26.0); PCO2 57.7 mmHg (35.0-45.0); PO2 80.5 mmHg (80.0-100.0); pH 7.382 (7.360-7.450); sO2 95.5 % (92.0-98.0)
[2020-07-26] VITALS (22 sets, daily range): BP systolic 95–138; BP diastolic 53–80
--- NOTE | 2020-07-26 00:56 | NUR ---
PATIENTS CARES AT MIDNIGHT WERE CARRIED OUT. PATIENT WAS GIVEN A BED BATH. WRAPPED IN WARM BLANKETS AFTER DUE TO PATIENT C/O BEING COLD AND CHILLED. STOOL LEEKS AROUND RECTAL MANAGEMENT SYSTEM FLUSHED CLEANED WILL CONTINUE TO WATCH FOR IT TO FUNCTION PROPERLY. HOURLY ROUNDS WERE DONE.THE HEAD BED IS AT A 45 DEGREES
[2020-07-26 04:30] LABS: HEMATOCRIT 35.8 % (42.0-52.0); HEMOGLOBIN 11.4 gm/dL (14.0-18.0); MCH 28.3 pg (26.0-34.0); MCV 88.6 fL (80.0-100.0); RBC 4.04 mil/uL (4.50-6.00); RDW 16.6 % (10.5-14.5); WBC 12.1 thou/uL (4.0-11.0)
[2020-07-26 04:34] LABS: CALCIUM 9.4 mg/dL (8.5-10.1); CREATININE 0.5 mg/dL (0.7-1.3); POTASSIUM 4.6 mmol/L (3.5-5.1)
--- NOTE | 2020-07-26 07:19 | NUR ---
PATIENTS CARES WERE ASSUMED AT SHIFT CHANGE. PATIENT WAS ASSESSED AND MEDS PASSED, HOWEVER PO MEDS LIKE PATIENTS VANCO MAKES THIS PATIENT CHOCK. NURSING WAS UNCOMFORTABLE WITH HIS REACTION TO MANAGE HIS SWOLLOW. NURSING CONTINUED WITH SAM SANDOVAL UNTIL FURTHER INVESTAGATION OF HIS SWOLLOWING. PATIENT HAD A BED BATH. RECTAL MANAGEMENT WAS FLUSHED, OZUNA IS IN PLACE. HOURLY ROUNDS WERE DONE. PATIENT HAD NO SADATIVE MEDS. PATIENT VERBALIZED HE IS READY TO GO HOME TODAY. PATIENT IN RESTRAINTS AND DOCUMENTATION WAS DONE.
--- NOTE | 2020-07-26 13:24 | NUR ---
PT SEEN BY . TODAY PT WAS DOING WELL WAS CONSOLABLE, CONFUSED YET WAS REDIRECTABLE. PT WAS PERSISTENT ON GETTING NICOTINE/PHONE TODAY, WAS FIXATED ON BRINGING OTHER PEOPLE INTO THE ROOM BY WAVING, MAY ALL BE RELATED TO PT PERKING UP AND WANTING MORE INTERACTIONS. HOWEVER WITH MORE ALERTNESS PT IS BECOMING MORE IMPULSIVE AND STRONGER. HALDOL HAD TO BE GIVEN PRIOR TO 'S ROUNDING. PT DID NOT RESPOND TO THE MEDICATION. 30 MINUTES AFTER ROUNDING WITH , RN SAW THAT THE PT HAD REMOVED ALL LEADS, AND HAD COMPLETELY TAKEN OFF ALL CLOTHES, ATIVAN HAD TO BE GIVEN. PT WAS READY TO GET OUT OF THE BED. PT FELL BACK ASLEEP. MID DAY MEDICATION CANNOT BE GIVEN DUE TO SEDATION. PT IS UNABLE TO CONTROL IMPULSIVENESS WHEN ALERT OR MEDICATED. PT IS REDIRECTABLE BUT PERSISTENT. PT IS EXTREMELY FORGETFUL, ASKS MULTIPLE TIMES THE SAME QUESTIONS. WANTS TO LEAVE THE HOSPITAL BUT IS STILL CONFUSED. NEW FECAL MANGEMENT SYSTEM PLACED TODAY, COMPLETE BODY BATH GIVEN. NEW SHEETS/CLEANSERS PROVIDED. RN TO MONITOR AND UPDATE NEEDED
[2020-07-27] VITALS (17 sets, daily range): BP systolic 76–147; BP diastolic 38–75
[2020-07-27 05:08] LABS: CALCIUM 9.7 mg/dL (8.5-10.1); CREATININE 0.5 mg/dL (0.7-1.3); POTASSIUM 4.4 mmol/L (3.5-5.1)
[2020-07-27 05:12] LABS: HEMATOCRIT 36.4 % (42.0-52.0); HEMOGLOBIN 11.5 gm/dL (14.0-18.0); MCH 28.2 pg (26.0-34.0); MCHC 31.7 g/dL (28.0-37.0); MCV 88.9 fL (80.0-100.0); RBC 4.09 mil/uL (4.50-6.00); RDW 16.1 % (10.5-14.5)
--- NOTE | 2020-07-27 05:47 | NUR ---
Patient slept for the majority of the night but woke about 0330. Patient very restless and agitated pulling off ekg leads and oxygen. Redirectable a little bit, but hits and cusses and throws things. Patient spitting out his oral liquid vanco. Patient did take his meds crushed in ensure pudding at hs well. Gave metoprolol IV X1 for HR > 130. Pt becomes tachycardic with agitation but comes down when he settles down. No Haldol or Ativan given. Adequate u/o/. No contact with the family this shift. See documentation on interventions for assessment details.
--- NOTE | 2020-07-27 16:25 | NUR ---
Attempted times 2 without success to reach daughter Marlin at [phone]. CM to continue to follow for anticipated return and discharge to [facility].
[2020-07-28] VITALS (14 sets, daily range): BP systolic 102–128; BP diastolic 56–76
--- NOTE | 2020-07-28 02:13 | NUR ---
PT BEEN CALM AND QUIET FOR THE MOST PART OF THE NIGHT UNTILL 30 MINUTES AGO,PT BECAME RESTLESS,AGITATED AND ATTEMPTING TO HIT STAFF WELL CALLING STAFF NAMES.STAFF TRIED TO REORIENT PATIENT W/O SUCCESS.PT ENDED UP TAKING HIS OXYGEN OFF AND REFUSING TO WEAR IT BACK,HIS O2 SAT DESAT TO 70S .HALDO GIVEN W/O PT'S IMPROVEMENT IN HIS BEHAVIOR.TELEHEALTH DIRECTOR NOTIFIED,ORDERS GIVEN,SEE POC.PT CURRENTLY RESTING QUIETLY IN BED.
--- NOTE | 2020-07-28 09:42 | 2DMMODE ---
[facility] [place] [address] 2 D/M-MODE ECHOCARDIOGRAM Name: URIELJIMMY PERDOMO Room #: 240-P ADM IN M.R.#: [id number] Admission: 07/09/20 Attend Phys: Zev Arvizu MD Discharge: Date of : 58 Report #: [id number] THIS REPORT FOR: cc: FAM - Family physician unknown FAM - Family physician unknown Colten Villafuerte MD [facility] ~ APPROVED REPORT Study performed: 07/28/2020 08:59:58 EXAM: Comprehensive 2D, Doppler, and color-flow Echocardiogram Patient Location: ICU Room #: 240 Status: routine BSA: 2.11 HR: 117 bpm BP: 124/63 mmHg Rhythm: Tachycardia Other Information Study Quality: Fair/not all measurements taken. Technically limited study due to uncooperative/combative patient. Unable to position. Indications Sinus tachycardia, cardiomyopathy. Hx: COVID-19 (05/2020), COPD, ETOH/Drug/Tobacco abuse, HTN. 2D Dimensions IVSd: 13.90 (7-11mm) LVDd: 39.84 mm PWd: 14.16 (7-11mm) LVDs: 32.20 (25-40mm) Aortic Root: 36.68 mm Aortic Valve AoV Peak Chavo.: 1.23 m/s AO Peak Gr.: 6.02 mmHg LVOT Max P.72 mmHg LVOT Max V: 0.96 m/s Mitral Valve E/A Ratio: 0.7 MV Decel. Time: 144.20 ms MV E Max Chavo.: 0.70 m/s [facility] [address] [place] [address] 2 D/M-MODE ECHOCARDIOGRAM Name: JIMMY TREVINO JR Room #: 240-P [facility] IN M.Jr.#: [id number] Admission: 07/09/20 Attend Phys: Zev Arvizu MD Discharge: Date of : 58 Report #: [id number] MV A Chavo.: 1.06 m/s MV PHT: 41.82 ms Tricuspid Valve RAP Estimate: 5.00 mmHg Left Ventricle The left ventricle is normal size. Mild concentric left ventricular hypertrophy. Left ventricular systolic function is normal. LVEF is 50-55%. Mild diastolic dysfunction is present. Right Ventricle The right ventricle is normal size. The right ventricular systolic function appears low normal. Atria Both atria appear normal in size. Aortic Valve The aortic valve is not well visualized. No aortic regurgitation is present. There is no aortic valvular stenosis. Mitral Valve The mitral valve is normal in structure. There is no mitral valve regurgitation noted. Tricuspid Valve The tricuspid valve is normal in structure. There is no tricuspid valve regurgitation noted. Unable to assess PA pressure. Pulmonic Valve Pulmonic valve is not well visualized. Great Vessels The aortic root is normal in size. IVC is normal in size and collapses >50% with inspiration. Pericardium There is no pericardial effusion. <Conclusion> Normal left ventricular size with mild concentric hypertrophy Ejection fraction 55-60% Normal right ventricular size/function Normal atrial size [facility] [address] [place] [address] 2 D/M-MODE ECHOCARDIOGRAM Name: JIMMY TREVINO Room #: 240-P ADM IN M.R.#: [id number] Admission: 07/09/20 Attend Phys: Zev Arvizu MD Discharge: Date of : 58 Report #: [id number] Color-flow Doppler study was performed of the aortic/mitral/tricuspid/pulmonary valve Normal aortic/mitral valve structure and function No tricuspid valve insufficiency No pericardial effusion EF has improved from his last echocardiogram <ELECTRONICALLY SIGNED> By: Colten Villafuerte MD, FACC 07/28/20940 0 0 Colten Villafuerte MD, FACC /INF
--- NOTE | 2020-07-28 11:54 | NUR ---
PT AGITATED AND RESTLESS. PRN JULIET GIVEN THIS AM. NOT EATING HIS FOOD AND SPITTING OUT. PT NOT FOLLOWING COMMANDS AND HITTING AND CUSSING AT THE STAFF. PT TRANSFERRED TO CCU ROOM 202. REPORT GIVEN TO SAGRARIO ALEXANDRA. CONTINUE TO MONITOR. PT BEHAVIOR NOTIFIED TO AND DR. BRYANT.
--- NOTE | 2020-07-28 14:47 | NUR ---
ATTEMPTED CO-TREAT SESSION WITH P.T. AT 1400. NURSING REPORTS PT. RECENTLY RECEIVED MEDS THAT MAKE HIM SLEEPY. PT. GRUNTING/MAKING NOISES IN HIS SLEEP. OT, P.T., AND NURSING ALL TRYING TO WAKE PT. AND HE DOES NOT WAKE UP, APPEARS TO BE SLEEPING PEACEFULLY. WILL RE-ATTEMPT TOMORROW. OT DID PROVIDE SHAMPOO CAP TO PT. HAIR AND COMB.
--- NOTE | 2020-07-28 16:20 | NUR ---
RECEIVED PT FROM ICU. PT IS ON RESTRAINTS. PT IS ON TPN AT 80 ML/HR. PT IS ALERT TO SELF, MOANS IN PAIN, AND CRIES OUT, SOMETIMES USES EXPLETIVES. PT/OT CONSULTED. FALL PRECAUTIONS IN PLACE. RESTRAINT PROTOCOLS IN PLACE. NO CONCERNS AT THIS TIME.
--- NOTE | 2020-07-28 18:29 | NUR ---
PT IS ALERT TO SELF. PT UNABLE TO VERBALLY VOICE CONCERNS, BUT ANSWERS YES AND NO QUESTIONS, MOANS, AND USES EXPLETIVES. PT HAS SOFT RESTRAINTS ON WRISTS; RESTRAINT PROTOCOL IN PLACE. FALL PRECAUTIONS IN PLACE. PT RECEIVING TPN IN R IJ TLC AT 80 ML/HR. PT ON HONEY THICKENED, PUREED DIET FOR ADDITIONAL CALORIES. POC IS TO MONITOR BP/HR, MONITOR RESTRAINTS, MONITOR O2: PT O2 BASELINE 4L NC. NO CONCERNS AT THIS TIME.
[2020-07-29 04:30] VITALS: BP 121/97
--- NOTE | 2020-07-29 05:13 | NUR ---
ASSUME CARE 1900. PT/VITALS STABLE./ A/O TO PERSON ONLY. EASILY IRRITATED. NEEDS FREQUENT REDIRECTION. NO PAIN INDICATED. PT IS UNCOOPERATIVE WITH CARE. ASSESSMENT CHARTED. POOR PROGRESS WITH POC. CONGESTED WITH VERY POOR COUGH EFFORT. ST ON MONITOR. NO DISTRESS NOTED. FECAL MANAGEMENT TUBE SYSTEM IN PLACE. PT ON TPN. POOR REST NOTED. SOFT WRIST RESTRAINTS IN PLACE. PLAN IS TO CONTINUE TO MONITOR AND MANAGE LOC/NUTRITION/INFECTION/RESPIRATORY FUNCTION. WILL CONTINUE TO FOLLOW WITH POC
[2020-07-29 06:42] LABS: CALCIUM 9.4 mg/dL (8.5-10.1); CREATININE 0.6 mg/dL (0.7-1.3); POTASSIUM 4.4 mmol/L (3.5-5.1)
--- NOTE | 2020-07-29 08:41 | NUR ---
PT. TOLERATED PO MEDICATIONS NO ISSUES AT ALL, WHOLE WITH APPLESAUCE. REMAINS IN RESTRAINTS HE PULLS ON TUBING. VERY ALERT THIS AM.,
[2020-07-29 08:42] VITALS: BP 127/53
[2020-07-29 09:26] LABS: HEMATOCRIT 33.3 % (42.0-52.0); HEMOGLOBIN 10.7 gm/dL (14.0-18.0); MCH 28.3 pg (26.0-34.0); MCHC 32.1 g/dL (28.0-37.0); MCV 88.4 fL (80.0-100.0); RBC 3.77 mil/uL (4.50-6.00); RDW 16.1 % (10.5-14.5); WBC 8.6 thou/uL (4.0-11.0)
[2020-07-29 11:52] VITALS: BP 121/62
--- NOTE | 2020-07-29 14:06 | NUR ---
RESTING WITH EYES CLOSED. LESS COMBATIVE NOW NO LONGER THROWING THE PHONE AT STAFF'S HEAD OR USING PROFANITY POST HALDOL ADMINSITRATION.
[2020-07-29 16:20] VITALS: BP 133/71
--- NOTE | 2020-07-29 17:33 | NUR ---
CHANGED OUT LINENS AND DID MAIKEL CARE AT THIS TIME PT. WAS HAVING BM AROUND HIS FECL TUBE. FLUSHED THE FECAL TUBE WITH 50ML AND IT STARTED FLOWING BETTER AGAIN. HIS BOTTOM AREA IS PINK TO RED SO TURNED HIM ONTO HIS RIGHT SIDE. RESTRAINTS ON AT THIS TIME AND CHARTED ON NEW ORDER RECEIVED THIS AM HE CAN BECOME COMBATIVE OUT OF NOWHERE.
[2020-07-29 20:37] VITALS: BP 98/63
[2020-07-29 23:31] VITALS: BP 125/70
--- NOTE | 2020-07-30 03:11 | NUR ---
CARE ASSUMED 1899. PT ORIENTED TO SLEF, LETHERGIV AND INCOHERENT DUE TO POOR ORAL SECRETION CLEARANCE. PT FECAL MANAGEMENT READJUSTED DUE TO LEAKING AROUND. Q6H BG STABLE. PT RESTLESS, TRYING TO PERIODICALLY GET OUT OF BED. HALDOL, ATIVAN PRN GIVEN . ST ON THE MONITOR, TREATED WITH IV METOPROLOL 5 MG. ON 5L O2 NC, HENCE CONTINOUS PULSE OXY. ISOLATION MAINTAINED. WILL CONTINUE TO MONITOR AND FOLLOW POC.
[2020-07-30 04:33] VITALS: BP 144/89
[2020-07-30 09:17] LABS: HEMATOCRIT 35.6 % (42.0-52.0); HEMOGLOBIN 11.4 gm/dL (14.0-18.0); MCH 28.1 pg (26.0-34.0); MCHC 31.9 g/dL (28.0-37.0); RBC 4.04 mil/uL (4.50-6.00); RDW 15.9 % (10.5-14.5); WBC 9.5 thou/uL (4.0-11.0)
[2020-07-30 09:30] LABS: CALCIUM 9.8 mg/dL (8.5-10.1); CREATININE 0.6 mg/dL (0.7-1.3); MAGNESIUM 1.9 mg/dL (1.8-2.4); POTASSIUM 4.5 mmol/L (3.5-5.1)
--- NOTE | 2020-07-30 10:33 | EKG ---
[address] [address] ELECTROCARDIOGRAM REPORT Name: URIELJIMMY Room #: 202-P ADM IN M.R.#: [id number] Admission: 07/09/20 Attend Phys: Zev Arvizu MD Discharge: Date of : 58 Report #: [id number] [facility] Test Date: 2020-07-30 Test Time: 10:05:51 Pat Name: JIMMY TREVINO Department: Room: 202 P Gender: M Portal Architect: ZARA : 1960 Requested By: Ken Grissom Order Number: [id number] MD: Colten Villafuerte Measurements Intervals [place] Rate: 118 P: 49 [place]: 161 QRS: 32 QRSD: 91 T: 69 QT: 292 QTc: 410 Interpretive Statements Sinus tachycardia Baseline wander in lead(s) V2 Compared to ECG 07/21/2020 10:31:29 Atrial flutter no longer present Prolonged QT interval no longer present Electronically Signed On 07-30-2020 10:33:03 COFFEE PLANTATION WORKER by Colten Villafuerte [email or web address] <ELECTRONICALLY SIGNED> By: Colten Villafuerte MD, [facility] 07/30/20 1033 1005 1005 Colten Villafuerte MD, [facility] /EPI
[2020-07-30 10:34] LABS: HCO3 36.2 mmol/L (22.0-26.0); PCO2 69.9 mmHg (35.0-45.0); PO2 90.4 mmHg (80.0-100.0); pH 7.332 (7.360-7.450); sO2 96.1 % (92.0-98.0)
[2020-07-30 11:58] VITALS: BP 110/63
--- NOTE | 2020-07-30 16:30 | NUR ---
FAXED CLINICAL UPDATE TO [facility] SPOKE WITH KASHIF IN ADM SHE RECEIVED UPDATE.
[2020-07-30 17:00] VITALS: BP 104/61
--- NOTE | 2020-07-30 18:03 | NUR ---
ASSUMED PT CARE AT 0715. PT WAS SLEEPING AND ALARMING THE OXYGEN SATURATION ALARM. PTS OXYGEN SATURATION WAS 70% ON 6L NASAL CANNULA. PT PLACED ON BIPAP. PTS STATUS IMPROVED IN APPROXIMATELY 2 HOURS. PT WAS MORE ALERT AND LESS CONFUSED AT LUNCH TIME. PT DENIED PAIN THROUGHOUT THE DAY. PT IS ALERT TO SELF. PT LUNG SOUNDS REMAINED COURSE/DIMINISHED. PT REMAINED SINUS TACHYCARDIA THROUGHOUT THE DAY WITH RATE IN THE 110s WITH NO OTHER DISTRESS. VSS AT THIS TIME. WILL CONTINUE TO MONITOR.
[2020-07-30 20:29] VITALS: BP 105/66
[2020-07-30 23:16] VITALS: BP 101/54
[2020-07-31 05:27] VITALS: BP 121/67
[2020-07-31 05:30] LABS: MCH 28.5 pg (26.0-34.0); MCHC 32.5 g/dL (28.0-37.0); MCV 87.7 fL (80.0-100.0); RBC 3.88 mil/uL (4.50-6.00); WBC 8.6 thou/uL (4.0-11.0)
[2020-07-31 06:12] LABS: CREATININE 0.5 mg/dL (0.7-1.3)
[2020-07-31 07:18] VITALS: BP 129/70
--- NOTE | 2020-07-31 07:40 | NUR ---
ASSUMED CARE 1900. PT AWAKE AND ORIENTED TO SELF. ORAL CARE DOSE AND SUCTIONED. PT UNABLE TO TOLERATE BIPAP AT THE BEGINNING OF THE SHIFT, ATIVAN 1MG GIVEN. PT TOLERATED BIPAP THROUGH THE NIGHT. NO OTHER CONCERNS. WILL CONTINUE TO MONITOR
[2020-07-31 11:26] VITALS: BP 107/63
--- NOTE | 2020-07-31 11:50 | NUR ---
Update called to admission at [facility] and detailed message left regarding his progress and anticipated dc needs. DC likely early next week. Weaning off TPN and increasing po intake. Pt will need cpap/bipap and o2 at night. Requested confirmation of skilled medicare days so he can return there with SNF orders. Dc shoe lay out planner to fax an updated as well.
--- NOTE | 2020-07-31 14:21 | NUR ---
PT REFUSED TO EAT LUNCH. TPN REMAINS INFUSING AT 40ML/HR.PT STATES HE IS COMFORTABLE ON THE BIPAP. PT IS LESS TAHCYPNIC AND TACHYCARDIC ON THE BIPAP. VSS AT THIS TIME. WILL CONITNUE TO MONITOR.
[2020-07-31 16:47] VITALS: BP 113/53
--- NOTE | 2020-07-31 16:57 | NUR ---
FAXED CLINICAL UPDATES TO [facility]. CONFIRMED WITH PEMA/YASH THAT THEY RECEIVED. [facility] P [phone]; FAX [phone]
--- NOTE | 2020-07-31 17:44 | NUR ---
ASSUMED PT AT 0700 THIS MORNING. PT HAS WORE THE BIPAP FREQUENTLY TODAY. PT HAS ASKED FOR THE BIPAP MULTIPLE TIMES. PTS HEART RATE DECREASES AND OXYGEN SATURATIONS INCREASE WITH THE BIPAP. PT HAS HAD AN INCREASE IN APPETITE. VSS. WILL CONTINUE TO MONITOR.
[2020-07-31 19:58] VITALS: BP 99/53
[2020-07-31 23:50] VITALS: BP 91/70
[2020-08-01 05:25] LABS: HEMATOCRIT 31.8 % (42.0-52.0); HEMOGLOBIN 10.6 gm/dL (14.0-18.0); MCH 30.8 pg (26.0-34.0); MCHC 33.3 g/dL (28.0-37.0); MCV 92.5 fL (80.0-100.0); RBC 3.43 mil/uL (4.50-6.00); WBC 6.8 thou/uL (4.0-11.0)
[2020-08-01 06:24] LABS: CALCIUM 9.1 mg/dL (8.5-10.1); CREATININE 0.8 mg/dL (0.7-1.3); MAGNESIUM 2.5 mg/dL (1.8-2.4)
[2020-08-01 06:50] LABS: POTASSIUM 6.3 mmol/L (3.5-5.1)
[2020-08-01 07:12] VITALS: BP 106/54
--- NOTE | 2020-08-01 08:03 | NUR ---
PT SLEPT SOME OF THE NIGHT; DIFFICULTY DUE TO BIPAP. PATIENT IS ALERT TO SELF AND SOMETIMES PLACE. ST ON THE MONITOR. FM AND CATH PRESENT. ISOLATION PRECAUTIONS FOR CDIFF. VSS. ASSESSMENTS CHARTED. MEDS GIVEN PER EMAR. CONTINUING TO ASSESS CLOSESLY ACCORDING TO POC.
[2020-08-01 08:17] LABS: HEMATOCRIT 33.6 % (42.0-52.0); HEMOGLOBIN 10.8 gm/dL (14.0-18.0); MCH 28.3 pg (26.0-34.0); MCHC 32.3 g/dL (28.0-37.0); MCV 87.6 fL (80.0-100.0); RBC 3.83 mil/uL (4.50-6.00); RDW 16.1 % (10.5-14.5); WBC 7.3 thou/uL (4.0-11.0)
[2020-08-01 08:37] LABS: CALCIUM 9.8 mg/dL (8.5-10.1); CREATININE 0.6 mg/dL (0.7-1.3); MAGNESIUM 1.9 mg/dL (1.8-2.4)
[2020-08-01 08:38] LABS: POTASSIUM 4.3 mmol/L (3.5-5.1)
[2020-08-01 11:52] VITALS: BP 109/57
[2020-08-01 16:34] VITALS: BP 119/63
--- NOTE | 2020-08-01 17:26 | NUR ---
PT VERY COOPERATIVE, ATE ALL OF BREAKFAST AND LUNCH BUT DID NOT WANT ANY OF HIS DINNER. ASKED HIM TO EAT HIS ENSURE PUDDING, AND HE SAID HE DIDN'T WANT IT. TV ON, PT WATCHING, NO OUTPUT FROM FMS ON DAYSHIFT, LABS WRONG THIS AM DUE TO PREVIOUS RN DRAWING WHILE TPN RUNNING, HE REDREW THEM, VALUES MORE NORMAL, DR WOLFE AWARE
[2020-08-01 19:45] VITALS: BP 116/53
[2020-08-02 03:56] VITALS: BP 119/59
--- NOTE | 2020-08-02 07:22 | NUR ---
PT SLEPT SOME OF THE NIGHT. PATIENT IS ALERT TO SELF AND SOME TIMES PLACE. ISOLATION PRECAUTIONS IN PLACE FOR CDIFF. FM & URINAL CATH. RECIEVING TPN. FALL PRECAUTIONS IN PLACE. MUMBLED SPEECH IMPROVING. MEDS GIVEN PER EMAR. ASSESSMENTS CHARTED. CONTINUING TO ASSESS CLOSESLY ACCORDING TO POC.
[2020-08-02 09:32] VITALS: BP 122/62
[2020-08-02 10:24] LABS: CREATININE 0.6 mg/dL (0.7-1.3); POTASSIUM 4.3 mmol/L (3.5-5.1)
[2020-08-02 10:25] LABS: CALCIUM 9.8 mg/dL (8.5-10.1)
[2020-08-02 10:53] LABS: HEMATOCRIT 33.3 % (42.0-52.0); HEMOGLOBIN 10.8 gm/dL (14.0-18.0); MCH 28.6 pg (26.0-34.0); MCHC 32.5 g/dL (28.0-37.0); RBC 3.79 mil/uL (4.50-6.00); RDW 15.6 % (10.5-14.5); WBC 7.4 thou/uL (4.0-11.0)
[2020-08-02 11:55] VITALS: BP 106/71
[2020-08-02 14:55] VITALS: BP 114/59
--- NOTE | 2020-08-02 17:45 | NUR ---
RECEIVED PT'S CARE AROUND 07; PT. ON BED; RESTING WITH EYES CLOSED; ST ON THE MONITOR; ON BYPAP; 02 SAT 100%; DURING AM ASSESSMENT ALERT TO PERSON; CONFUSED; FORGETFU; AM MEDICATIONS GIVEN; D/C OZUNA AND FECAL MANAGMENT; EATING 50% OF BREAKFAST; PHYSICIAN NOTIFIED; ORDERS RECEIVED; D/C TPN; MONITORING CALORIE INTAKE; THROUGH THE DAY TURN FROM SIDE TO SIDE; C/O PAIN OVER RECTUM WHEN CLEAN; ABLE TO VOID AFTER D/C OZUNA; CONDOM OZUNA IN PLACED; TRIED TO GET UP FROM BED ONCE DURING THE AFTERNOON; REMAINED ABOUT STAYING ON BED; CALLING BEFORE GETTING UP; FREQUENTLY ROUNDING; ASSESSMENT CHARGED; FOLLOWING POC; WILL PASS ON REPORT;
[2020-08-02 20:08] VITALS: BP 119/71
[2020-08-03 03:29] LABS: HEMATOCRIT 39.1 % (42.0-52.0); HEMOGLOBIN 12.5 gm/dL (14.0-18.0); MCH 28.2 pg (26.0-34.0); MCHC 31.9 g/dL (28.0-37.0); MCV 88.7 fL (80.0-100.0); RBC 4.41 mil/uL (4.50-6.00); RDW 15.7 % (10.5-14.5); WBC 9.1 thou/uL (4.0-11.0)
[2020-08-03 03:44] LABS: CALCIUM 10.2 mg/dL (8.5-10.1); CREATININE 0.6 mg/dL (0.7-1.3); MAGNESIUM 1.9 mg/dL (1.8-2.4)
[2020-08-03 03:46] LABS: POTASSIUM 4.6 mmol/L (3.5-5.1)
[2020-08-03 04:21] VITALS: BP 125/54
--- NOTE | 2020-08-03 04:38 | NUR ---
ASSUMED PT CARE AT 1900. VSS. PT ORIENTED TO SELF ALONE, HE THINKS HE IS AT A REHAB FACILITY, PT REORIENTED SEVERAL TIMES THROUGH THE NOC. PT FREQUENTLY TAKES BIPAP OFF DURING THE NOC. PT NOW ON 6L NC. TOLERATING IT WELL. SATS AROUND 96%. PT GOT A BATH AND A SHAVE THIS SHIFT, CONDOM CATHETER CHANGED OUT WELL. PT IS STABLE, CLEAN, WILL CONTINUE TO MONITOR PER POC
[2020-08-03 08:00] VITALS: BP 128/81; BP 134/55
[2020-08-03 12:00] VITALS: BP 127/55
[2020-08-03 15:18] VITALS: BP 104/40
--- NOTE | 2020-08-03 15:40 | NUR ---
Patient is advancing diet. Sp with dtr Luh and cont plan return to [place] once stable. Luh to be designated visitor. Alerted to RN this as well as need COVID test.
[2020-08-03 20:50] VITALS: BP 112/73
[2020-08-04 04:00] VITALS: BP 106/73
--- NOTE | 2020-08-04 04:07 | NUR ---
PT ORIENTED. MORE AWAKE, ABLE TO CONVERSE BUT INCOHERENT MOST OF THE TIME. DENIES PAIN. SR, ST, ON THE MONITOR. BIPAP USE WHOLE NIGHT. NO MAJOR CONCERNS. WILL CONTINUE TO MONITOR AND FOLLOW POC.
--- NOTE | 2020-08-04 10:42 | NUR ---
FAXED CLINICAL UPDATE TO [facility] RECEIVED CONFIRMATION AND SPOKE WITH NICHOLAS AT FACILITY SHE WILL GIVE UPDATE TO DON AND PT POSS DC BACK TODAY.
[2020-08-04 16:00] VITALS: BP 106/55
--- NOTE | 2020-08-04 18:15 | NUR ---
ASSUMED CARE OF PT AT SHIFT CHANGE. ASSESSMENTS CHARTED. MEDS GIVEN PER AUG. PT A&OX4, NO C/O PAIN, ALTHOUGH RESTLESS SO GAVE TYLENOL WITH SOME APPARENT RELIEF. PT WILL EAT IF GIVEN TIME AND ENCOURAGEMENT. PT TALKS BUT IT IS MOSTLY GARBLED. WILL CONTINUE TO MONITOR AND FOLLOW POC.
[2020-08-05 04:12] VITALS: BP 115/66
[2020-08-05 07:20] VITALS: BP 109/67
--- NOTE | 2020-08-05 07:55 | NUR ---
PATIENT SLEPT PART OF THE NIGHT. ALERT TO SELF; SOMTIMES PLACE. WAS ON 5L BEGINNING OF THE NIGHT AND THEN SWITCHED TO BIPAP; TOLERATED FAIRLY. NO COMPLAINTS OF PAIN OR SOA. BED REST. EXTERNAL MALE CATH IN PLACE. ASSESSMENTS CHARTED. MEDS GIVEN PER EMAR. FALL PRECAUTIONS IN PLACE. CONTINUING TO ASSESS ACCORDING TO POC.
[2020-08-05 11:50] VITALS: BP 92/61
[2020-08-05] MEDS ORDERED: METOPROLOL SUCC50 MG PO (14:17)
[2020-08-05] MEDS ORDERED: LIPITOR40 MG PO (14:17)
[2020-08-05] MEDS ORDERED: RISPERDAL 1 MG T1 MG PO ×2 (14:18→14:36)
[2020-08-05] MEDS ORDERED: VANCOMYCIN HCL125 MG PO (14:20)
--- NOTE | 2020-08-05 16:51 | NUR ---
PT DISCHARGING TODAY BACK TO [facility] FAXED DC ORDERS/SUMMARY RECEIVED CONFIRMATION AND SPOKE WITH NICHOLAS SHE ARRANGED TRANSPORT [facility] FOR [phone] TODAY. SPOKE WITH PT'S DTR (JOSSUE) SHE IS AGREEABLE TO DC AND TRANSPORT. UNIT NOTIFIED AND CHART COPY PER US. RN TO CALL REPORT TGO [phone].
[2020-08-05 17:00] VITALS: BP 101/64
--- NOTE | 2020-08-05 19:51 | NUR ---
ASSUMED CARE OF PT AT SHIFT CHANGE. ASSESSMENTS CHARTED. MEDS GIVEN PER AUG. PT ALERT TO SELF AND PLACE. NO C/O PAIN. ATE A BIT MORE TODAY, DID BETTER WHEN ENCOURARAGED AND NOT RUSHED. DISCHARGE ORDERS COMPLETE. TRANSPORTATION VIA [facility] TO FACILITY.
== END 2020-08-05 18:57 | DRG 870 ==
LOC: ER 21:04 → ICU 22:14 → EROBS 22:14 → ICU 23:40 → 2N 07-28 12:12
PROVIDERS: Emergency Medicine; Hospitalist; Internal Medicine; Internal Medicine Pulmonary Disease; Nurse Practitioner Family; Pediatrics; Specialist; ADMIT Internal Medicine; ATTEND Internal Medicine
PROC: 5A09357 Assistance with Respiratory Ventilation, Less than 24 Consecutive Hours, Continuous Positive Airway Pressure (ICD-10-PCS; principal; 2020-07-09)
PROC: 0BH17EZ Insertion of Endotracheal Airway into Trachea, Via Natural or Artificial Opening (ICD-10-PCS; 2020-07-10)
PROC: 5A1955Z Respiratory Ventilation, Greater than 96 Consecutive Hours (ICD-10-PCS; 2020-07-10)
PROC: 02HV33Z Insertion of Infusion Device into Superior Vena Cava, Percutaneous Approach (ICD-10-PCS; 2020-07-10)
PROC: 5A09357 Assistance with Respiratory Ventilation, Less than 24 Consecutive Hours, Continuous Positive Airway Pressure (ICD-10-PCS; 2020-07-21)
PROC: 5A09357 Assistance with Respiratory Ventilation, Less than 24 Consecutive Hours, Continuous Positive Airway Pressure (ICD-10-PCS; 2020-07-22)
PROC: 5A09357 Assistance with Respiratory Ventilation, Less than 24 Consecutive Hours, Continuous Positive Airway Pressure (ICD-10-PCS; 2020-07-23)
PROC: 5A09357 Assistance with Respiratory Ventilation, Less than 24 Consecutive Hours, Continuous Positive Airway Pressure (ICD-10-PCS; 2020-07-25)
PROC: 5A09357 Assistance with Respiratory Ventilation, Less than 24 Consecutive Hours, Continuous Positive Airway Pressure (ICD-10-PCS; 2020-07-26)
PROC: 5A09357 Assistance with Respiratory Ventilation, Less than 24 Consecutive Hours, Continuous Positive Airway Pressure (ICD-10-PCS; 2020-07-30)
PROC: 5A09357 Assistance with Respiratory Ventilation, Less than 24 Consecutive Hours, Continuous Positive Airway Pressure (ICD-10-PCS; 2020-07-31)
PROC: 5A09357 Assistance with Respiratory Ventilation, Less than 24 Consecutive Hours, Continuous Positive Airway Pressure (ICD-10-PCS; 2020-08-01)
PROC: 5A09357 Assistance with Respiratory Ventilation, Less than 24 Consecutive Hours, Continuous Positive Airway Pressure (ICD-10-PCS; 2020-08-02)
PROC: 5A09357 Assistance with Respiratory Ventilation, Less than 24 Consecutive Hours, Continuous Positive Airway Pressure (ICD-10-PCS; 2020-08-03)
PROC: 5A09357 Assistance with Respiratory Ventilation, Less than 24 Consecutive Hours, Continuous Positive Airway Pressure (ICD-10-PCS; 2020-08-04)
PROC: 5A09357 Assistance with Respiratory Ventilation, Less than 24 Consecutive Hours, Continuous Positive Airway Pressure (ICD-10-PCS; 2020-08-05)
DX: A41.89 Other specified sepsis (principal); U07.1 COVID-19; G92 Toxic encephalopathy; J12.82 Pneumonia due to coronavirus disease 2019; E43 Unspecified severe protein-calorie malnutrition; J80 Acute respiratory distress syndrome; I48.92 Unspecified atrial flutter; I42.9 Cardiomyopathy, unspecified; A04.72 Enterocolitis due to Clostridium difficile, not specified as recurrent; I48.20 Chronic atrial fibrillation, unspecified; K21.9 Gastro-esophageal reflux disease without esophagitis; F10.11 Alcohol abuse, in remission; I10 Essential (primary) hypertension; J43.9 Emphysema, unspecified; I95.9 Hypotension, unspecified; E78.5 Hyperlipidemia, unspecified; K27.9 Peptic ulcer, site unspecified, unspecified as acute or chronic, without hemorrhage or perforation; F41.9 Anxiety disorder, unspecified; Z79.899 Other long term (current) drug therapy; Z87.891 Personal history of nicotine dependence; Z93.0 Tracheostomy status; Z68.31 Body mass index [BMI] 31.0-31.9, adult
CPT/HCPCS: 10078; 10081; 10203

== ENCOUNTER 2020-08-19 13:48 | Inpatient (IN) | payer OTHER ==
[~2020-08-19] VITALS: Ht 182.9 cm; Wt 102.1 kg
[~2020-08-19 13:48] MED LIST: CARVEDILOL6.25 M1 PO; HYDROXYZINE PAM50 MG PO; LIPITOR40 MG PO; METOPROLOL SUCC50 MG PO; OMEPRAZOLE40 MG PO; PROAIR HFA8.5 GM INH; PROTONIX40 M2 PO; RISPERDAL 1 MG T1 MG PO; SYMBICORT160 MCG/4. INH; TRAZODONE HCL50 MG PO; VANCOMYCIN HCL125 MG PO
[2020-08-19 14:39] LABS: BASOPHILS 0.4 % (0.0-2.0); EOSINOPHILS 1.6 % (0.0-3.0); HEMATOCRIT 39.4 % (42.0-52.0); HEMOGLOBIN 12.6 gm/dL (14.0-18.0); LYMPHOCYTES 13.7 % (24.0-44.0); MCH 28.4 pg (26.0-34.0); MCV 88.7 fL (80.0-100.0); MONOCYTES 7.1 % (1.0-8.0); PLATELET COUNT 273 thou/uL (150-400); POLYS 77.2 % (36.0-66.0); RBC 4.44 mil/uL (4.50-6.00); WBC 11.6 thou/uL (4.0-11.0)
[2020-08-19 14:44] LABS: BE(vivo) 21.3 mmol/L (-2 to +3); HCO3 57.4 mmol/L (22.0-26.0); PCO2 162.6 mmHg (35.0-45.0); PO2 72.5 mmHg (80.0-100.0); pH 7.166 (7.360-7.450); sO2 87.2 % (92.0-98.0)
[2020-08-19 14:56] LABS: APTT 25.9 Seconds (24.5-32.8); PROTIME 10.6 Seconds (9.3-11.4)
[2020-08-19 15:25] LABS: URINE BLOOD 2+ (Negative); URINE CLARITY CLEAR; URINE COLOR YELLOW; URINE GLUCOSE-RANDOM* NEGATIVE (Negative); URINE KETONES NEGATIVE (Negative); URINE LEUKOCYTES-REFLEX NEGATIVE (Negative); URINE NITRITE-REFLEX NEGATIVE (Negative); URINE PROTEIN (DIPSTICK) NEGATIVE (Negative); URINE SPECIFIC GRAVITY >= 1.030 (1.005-1.035); URINE UROBILINOGEN 0.2 E.U./dl (0.2-1.0)
[2020-08-19 15:39] LABS: BUN 7 mg/dL (7-18); CALCIUM 8.9 mg/dL (8.5-10.1); CHLORIDE 100 mmol/L (98-107); CREATININE 0.6 mg/dL (0.7-1.3); GLUCOSE 110 mg/dL (74-106); POTASSIUM 4.6 mmol/L (3.5-5.1); SGOT 17 U/L (15-37); SGPT 28 U/L (16-63); SODIUM 145 mmol/L (136-145); TOTAL BILIRUBIN 0.4 mg/dL (0.2-1.0); TOTAL PROTEIN 6.7 g/dL (6.4-8.2); TROPONIN-I <0.06 ng/mL (<0.06)
[2020-08-19 15:43] LABS: ICTOTEST (BILI CONFIRMATORY) Negative (Negative)
[2020-08-19 15:45] LABS: CO2 > 45 mmol/L (21-32)
[2020-08-19 15:47] LABS: URINE BILIRUBIN NEGATIVE (Negative)
[2020-08-19 15:48] LABS: CASTS None Seen /LPF (None Seen); MUCUS 0-3 Light strn/LPF (None Seen); SQUAMOUS None Seen /LPF (0-3)
[2020-08-19 15:49] LABS: BACTERIA-REFLEX 1-9 Few /HPF (None Seen); CRYSTALS None Seen /LPF (None Seen); URINE RBC 3-10 Few /HPF (0-2); URINE WBC-REFLEX 0-5 Rare /HPF (0-5)
[2020-08-19 17:45] LABS: BE(vivo) 16.8 mmol/L (-2 to +3); HCO3 48.1 mmol/L (22.0-26.0); PCO2 96.9 mmHg (35.0-45.0); PO2 65.8 mmHg (80.0-100.0); pH 7.314 (7.360-7.450); sO2 89.7 % (92.0-98.0)
[2020-08-19 19:15] VITALS: BP 118/66
--- NOTE | 2020-08-19 19:26 | NUR ---
1526 ET TUBE PLACED 8.0, 23 AT THE LIP. OG TUBE 65 AT THE LIP
[2020-08-19 19:32] VITALS: BP 85/59
[2020-08-19 19:46] VITALS: BP 133/73
[2020-08-19 20:00] VITALS: BP 140/73
[2020-08-19 20:15] VITALS: BP 116/65
--- NOTE | 2020-08-19 20:37 | NUR ---
VAT CONSULTED FOR PICC LINE. PT'S LABS,MEDS,HX,ORDER AND CONSENT VERIFIED. ERASMO DENNY WAS WIDELY PATENT WITH USG. TL POWER PICC TRIMMED TO 44CM INSERTED TO 1CM EXTERNAL WITH CONFIRMATION PEAKED PWAVE ON 3CG. PICC RELEASED FOR IMMEDIATE USE PER PROTOCOL TO ALLYSON ZABALA
--- NOTE | 2020-08-19 20:39 | NUR ---
PT ARRIVAL TO UNIT AT 192 VIA ER CART ON VENT WITH OG AND OZUNA IN PLACE. TRANSFERRED TO ICU BED, PLACED ON MONITORS. PT AWAKE ATTEMPTING TO MOUTH TO THIS RN BUT UNABLE TO DECIFER WORDS.
[2020-08-19] MEDS ORDERED: METOPROLOL SUCC50 MG PO (22:22)
[2020-08-20] VITALS (95 sets, daily range): BP systolic 88–154; BP diastolic 36–80
[2020-08-20 04:48] LABS: BE(vivo) 8.4 mmol/L (-2 to +3); HCO3 35.5 mmol/L (22.0-26.0); PCO2 62.1 mmHg (35.0-45.0); PO2 65.1 mmHg (80.0-100.0); pH 7.375 (7.360-7.450); sO2 91.7 % (92.0-98.0)
[2020-08-20 04:48] LABS: HEMATOCRIT 34.8 % (42.0-52.0); HEMOGLOBIN 11.5 gm/dL (14.0-18.0); MCH 28.9 pg (26.0-34.0); MCHC 33.1 g/dL (28.0-37.0); MCV 87.3 fL (80.0-100.0); RBC 3.98 mil/uL (4.50-6.00); RDW 15.6 % (10.5-14.5)
[2020-08-20 04:49] LABS: CREATININE 0.8 mg/dL (0.7-1.3); POTASSIUM 3.7 mmol/L (3.5-5.1)
--- NOTE | 2020-08-20 05:21 | NUR ---
ABLE TO TITRATE FI02, PT TOLERATING WELL, LIGHTLY SEDATED, WAKES AND FOLLOWS COMMANDS. NODS/SHAKES HEAD.
--- NOTE | 2020-08-20 07:07 | EKG ---
[address] [place] [address] ELECTROCARDIOGRAM REPORT Name: URIELJIMMY Room #: 241-P ADM IN .R.#: [id number] Admission: 08/19/20 Attend Phys: Ricci Gan MD Discharge: Date of : 58 Report #: [id number] [facility] ED Test Date: 2020-08-19 Test Time: 14:43:39 Pat Name: JIMMY TREVINO Department: Room: 241 Gender: M Wire Roller: mandeep : 1960 Requested By: Fer Aguero Order Number: [id number] : Colten Villafuerte Measurements Intervals [place] Rate: 91 P: 53 IN: 164 QRS: 9 QRSD: 99 T: 47 QT: 363 QTc: 447 Interpretive Statements Sinus rhythm Compared to ECG 07/30/2020 10:05:51 Sinus tachycardia no longer present Electronically Signed On 08-20-2020 7:07:28 BRIDAL GOWN FITTER by Colten Villafuerte [email or web address] <ELECTRONICALLY SIGNED> By: Colten Villafuerte MD, [facility] 08/20/20 0707 1443 1443 Colten Villafuerte MD, FACC /EPI
--- NOTE | 2020-08-20 10:09 | NUR ---
Nutrition: pt intubated. REC start enteral nutrition of Vital AF to reach goal 60 mL/hr. will meet ~100% of needs with present propofol demands.
--- NOTE | 2020-08-20 13:49 | NUR ---
chart review. he been to acute rehab in past, and skilled in past. unable to visit with him rt being on vent, nutritional support. cm visited with his daughter gerard [phone]. he been at [facility] and then only been at [facility] for few weeks. uses wheel chair, has assist with adl's. on o2 at [facility] 2-4 L/nc. no anticipated dc over the weekend, will cont following as needed for dc needs. got covid in may/jun.
--- NOTE | 2020-08-20 16:45 | NUR ---
1640- Nurse returned to unit to find patient tachyardic and full body twitching. Nurse attempted to wake him up and he is not focusing, responding as he has been today. Nurse paged Dr. Hollis for further orders. Versed being given.
[2020-08-21] VITALS (66 sets, daily range): BP systolic 95–154; BP diastolic 46–82
--- NOTE | 2020-08-21 03:56 | NUR ---
1944-VERSED GTT STARTED AT LOWEST DOSE. 2044-VITAL AF TUBE FEED STARTED AT 20 ML/HR VIA OG. PT CONTINUES TO HAVE TREMORS, WITH HIGHLY VISIBLE TWITCHES OF LEGS; SLIGHT IMPROVEMENT OF TREMORS AFTER INCREASING VERSED GTT. 2199-SPOKE W/TRAVEL AGENCY MANAGER JORDEN REGARDING THE TREMORS, ASKED IF SHE WANTED TO CONSULT NEURO FOR SEIZURE TESTING. SHE ADVISED THAT DR. TOBAR WOULD BE MOST APPROPRIATE TO MAKE THAT DECISION. GRADUALLY TITRATING PROPOFOL DOWN NOW THAT VERSED IS ON BOARD. HAVE ALSO LOWERED LEVOPHED GTT. WILL CONTINUE TO MONITOR.
[2020-08-21 04:31] LABS: BE(vivo) 12.2 mmol/L (-2 to +3); HCO3 40.6 mmol/L (22.0-26.0); PO2 78.8 mmHg (80.0-100.0); pH 7.352 (7.360-7.450); sO2 94.5 % (92.0-98.0)
[2020-08-21 04:32] LABS: PCO2 74.9 mmHg (35.0-45.0)
[2020-08-21 04:36] LABS: HEMATOCRIT 32.6 % (42.0-52.0); HEMOGLOBIN 10.6 gm/dL (14.0-18.0); MCH 28.3 pg (26.0-34.0); MCHC 32.6 g/dL (28.0-37.0); MCV 86.8 fL (80.0-100.0); RBC 3.75 mil/uL (4.50-6.00)
[2020-08-21 04:53] LABS: CREATININE 0.7 mg/dL (0.7-1.3); POTASSIUM 3.2 mmol/L (3.5-5.1)
--- NOTE | 2020-08-21 10:00 | NUR ---
ASSUMMED CARE OF THIS PATIENT FROM THE NIGHT NURSE SAKINA AT 0700. GOSIA GALEANO IN PLACE. SEDATION TAPPERED AND VERSED CONTINUES. WILL CONTINUE TO MONITOR.
--- NOTE | 2020-08-21 14:31 | NUR ---
VACATION SEDATION COMPLETED FOR 20 MINS, COUGHING, WILL NOT FOLLOW THE COMMANDS, AND HEART RATE FROM [address] CONTINUES.
--- NOTE | 2020-08-21 15:45 | NUR ---
PATIENT TRANSFERRED TO ICU ROOM 242 WITH BELONGINGS. REPORT GIVEN TO ALICIA ZABALA.
[2020-08-22] VITALS (24 sets, daily range): BP systolic 97–139; BP diastolic 43–66
[2020-08-22 04:31] LABS: HEMATOCRIT 30.9 % (42.0-52.0); MCH 28.6 pg (26.0-34.0); MCHC 32.5 g/dL (28.0-37.0); MCV 88.1 fL (80.0-100.0); RBC 3.51 mil/uL (4.50-6.00); RDW 16.2 % (10.5-14.5); WBC 10.1 thou/uL (4.0-11.0)
[2020-08-22 04:55] LABS: CALCIUM 8.7 mg/dL (8.5-10.1); CREATININE 0.7 mg/dL (0.7-1.3); POTASSIUM 3.8 mmol/L (3.5-5.1)
[2020-08-22 16:25] LABS: BE(vivo) 15.8 mmol/L (-2 to +3); HCO3 42.8 mmol/L (22.0-26.0); PO2 78.1 mmHg (80.0-100.0); pH 7.428 (7.360-7.450); sO2 95.4 % (92.0-98.0)
[2020-08-22 16:26] LABS: PCO2 66.3 mmHg (35.0-45.0)
--- NOTE | 2020-08-22 18:09 | NUR ---
no cpap trialing today. precedex gtt started for ventilator managment. weaning down propofol and versed. no calls from family.
[2020-08-23] VITALS (24 sets, daily range): BP systolic 130–165; BP diastolic 67–93
[2020-08-23 05:37] LABS: HEMATOCRIT 35.2 % (42.0-52.0); HEMOGLOBIN 11.4 gm/dL (14.0-18.0); MCH 28.5 pg (26.0-34.0); MCHC 32.3 g/dL (28.0-37.0); RDW 16.5 % (10.5-14.5)
[2020-08-23 05:48] LABS: CALCIUM 8.3 mg/dL (8.5-10.1); CREATININE 0.6 mg/dL (0.7-1.3); POTASSIUM 4.5 mmol/L (3.5-5.1)
--- NOTE | 2020-08-23 05:48 | NUR ---
RESPONDING TO COMMANDS APPROPRIATELY, DENIES PAIN, TOLERATING TURNS. NOT TOLERATING TUBE FEEDINGS, PLACED ON HOLD, ABD IS STILL SOFT TO PALPATION. VSS, CURRENTLY OFF PROPOFOL AND VERSED AND TOLERATING VENT WELL.
[2020-08-23 10:52] LABS: HCO3 36.8 mmol/L (22.0-26.0); PO2 101.7 mmHg (80.0-100.0); pH 7.406 (7.360-7.450); sO2 97.5 % (92.0-98.0)
--- NOTE | 2020-08-23 12:39 | NUR ---
ASSUMED CARE OF PT AT 0700. PT DID A CPAP TRIAL THIS MORNING AND HIS GASES LOOKED GOOD. DR. HANDY AT BEDSIDE AT 1237 AND SAID HE IS GETTING CLOSE TO BEING READY TO EXTUBATE. HE WOULD LIKE HIM TO CPAP FOR ONE MORE HOUR AND THEN HAVE RT GET A GAS AND SEE HOW HE DOES. I BROUGHT UP THE POSSIBILITY OF HIM ASPERATING AT THE CARE HOME AND DR. HANDY BELIEVES HIS ISSUE IS HIS COPD .
[2020-08-23 18:52] LABS: BE(vivo) 10.3 mmol/L (-2 to +3); HCO3 36.7 mmol/L (22.0-26.0); PCO2 56.8 mmHg (35.0-45.0); PO2 144.9 mmHg (80.0-100.0); pH 7.428 (7.360-7.450); sO2 98.9 % (92.0-98.0)
[2020-08-24] VITALS (23 sets, daily range): BP systolic 106–155; BP diastolic 70–95
[2020-08-24 05:56] LABS: HEMATOCRIT 37.9 % (42.0-52.0); HEMOGLOBIN 12.3 gm/dL (14.0-18.0); MCH 28.3 pg (26.0-34.0); MCHC 32.4 g/dL (28.0-37.0); MCV 87.4 fL (80.0-100.0); RBC 4.33 mil/uL (4.50-6.00); RDW 16.1 % (10.5-14.5); WBC 10.4 thou/uL (4.0-11.0)
[2020-08-24 06:31] LABS: CREATININE 0.5 mg/dL (0.7-1.3); POTASSIUM 3.9 mmol/L (3.5-5.1)
[2020-08-24 08:18] LABS: BE(vivo) 7.6 mmol/L (-2 to +3); HCO3 33.9 mmol/L (22.0-26.0); PO2 82.5 mmHg (80.0-100.0); pH 7.408 (7.360-7.450)
--- NOTE | 2020-08-24 08:58 | NUR ---
ASSUMED CARE OF PT AT [address] HANDY AT 0861 REGARDING PT'S CPAP TRIAL AND HIS ABG'S
--- NOTE | 2020-08-24 09:08 | NUR ---
chart review. vent with cpap trials, and nutritional support. possible be able to extubate today. He from [place]. will cont following as needed for dc needs.
[2020-08-25] VITALS (24 sets, daily range): BP systolic 100–161; BP diastolic 50–89
[2020-08-25 06:28] LABS: HEMATOCRIT 39.2 % (42.0-52.0); HEMOGLOBIN 12.7 gm/dL (14.0-18.0); MCH 27.9 pg (26.0-34.0); MCHC 32.3 g/dL (28.0-37.0); MCV 86.3 fL (80.0-100.0); RBC 4.54 mil/uL (4.50-6.00); RDW 15.7 % (10.5-14.5); WBC 9.3 thou/uL (4.0-11.0)
[2020-08-25 06:45] LABS: CALCIUM 8.7 mg/dL (8.5-10.1); CREATININE 0.5 mg/dL (0.7-1.3); POTASSIUM 4.1 mmol/L (3.5-5.1)
--- NOTE | 2020-08-25 13:33 | NUR ---
PT IS PROGRESING TOWARDS DISCHARGE AT THIS TIME, PT WAS SEEN TODAY BY //PT/OT/ PT WILL BE TRANSITIONING OFF OF PRECEDEX GTT AND MOVING TOWARDS THE PRN CLONAZEPAM TODAY. RN HAD CONSULTED WITH MD TO PLACE ORDER FOR PT/OT FOR THE PT. PER PT/OT PT IS 2 PEOPLE ASSIST, HAS GREATER WEAKNESS TO R LEG THAN LEFT, AND HAS BILATERAL EQUAL WEAKNESS TO BOTH ARMS. PT IS ALSO FOUND TO HAVE TORTICOLLIS, LEANING TO THE L SIDE, THE PT/OT HAD READJUSTED THE PT IN BED ACCOMODATE AN ENVIRONMENT OF HEALING. RN WILL CONTINUE TO MONITOR AND UPDATE NECESSARY.
[2020-08-26] VITALS (18 sets, daily range): BP systolic 108–160; BP diastolic 60–120
--- NOTE | 2020-08-26 04:55 | NUR ---
ASSUMED PT CARE AT 1900. VSS. PT ALERT BUT ORIENTED TO SELF ONLY. PT HAS BOUTS OF INTERMEDIATE CONFUSION. PRECEDEX TITRATED OFF AT 2300 LAST NOC. SINCE IT HAS BEEN OFF, PT GETS TACHYCARDIC WITH MINIMAL ACTIVITY. PT HR NOW REST BETWEEN 110S TO 120S AND 140S WITH ACTIVITY. PT IS STABLE, ON 3L NC SATS >92 WILL CONTINUE TO MONITOR.
[2020-08-26 05:30] LABS: HEMATOCRIT 40.9 % (42.0-52.0); HEMOGLOBIN 13.4 gm/dL (14.0-18.0); MCH 28.3 pg (26.0-34.0); MCHC 32.9 g/dL (28.0-37.0); MCV 86.2 fL (80.0-100.0); RBC 4.74 mil/uL (4.50-6.00); RDW 16.2 % (10.5-14.5); WBC 14.1 thou/uL (4.0-11.0)
[2020-08-26 05:48] LABS: CALCIUM 8.6 mg/dL (8.5-10.1); CREATININE 0.5 mg/dL (0.7-1.3); POTASSIUM 3.2 mmol/L (3.5-5.1)
--- NOTE | 2020-08-26 09:46 | NUR ---
ASSUMED CARE OF PT AT 0700. PT WAS COOPERATIVE AT THE BEGINNING OF MY SHIFT BUT THE MORNING HAS GONE ON HE HAS BECOME EXTREMEMLY AGGITATED AND IS YELLING OBSCENITIES BECAUSE HE WANTS TO GO HOME.
--- NOTE | 2020-08-26 13:15 | NUR ---
FAXED CLINICAL UPDATES TO [facility]. [place] N & R: P [phone]; [phone]
[2020-08-27 00:32] VITALS: BP 123/66
[2020-08-27 04:01] VITALS: BP 124/75
[2020-08-27 07:59] VITALS: BP 108/56
[2020-08-27 08:41] LABS: HEMATOCRIT 39.9 % (42.0-52.0); HEMOGLOBIN 12.8 gm/dL (14.0-18.0); MCH 27.9 pg (26.0-34.0); MCHC 32.2 g/dL (28.0-37.0); MCV 86.5 fL (80.0-100.0); RBC 4.61 mil/uL (4.50-6.00)
[2020-08-27 08:49] LABS: CALCIUM 8.6 mg/dL (8.5-10.1); CREATININE 0.6 mg/dL (0.7-1.3)
--- NOTE | 2020-08-27 09:41 | NUR ---
FAXED CLINICAL UPDATE TO [facility] RECEIVED CONFIRMATION AND LEFT MSG WITH KASHIF IN ADM.
[2020-08-27 11:21] VITALS: BP 141/78
--- NOTE | 2020-08-27 12:31 | NUR ---
Note Given: Y Facility List Provided:Y Facility [place]: None chosen at this time Marlene Jones NP discussed BPCI with patient today
--- NOTE | 2020-08-27 15:19 | NUR ---
PT IS AWAKE, ORIENTED ONLY TO SELF, WITH SOME TALKING. PT IS ON 3L VIA NC, WITH HOB UP 30-45 DEGREES. PT IS EXHIBITING SINUS TACH AND O2 SATS AT 84%. RT CONSULTED, DR HANDY CONSULTED, DR WOLFE CONSULTED. RT PLACED MASK SHIELD ON PT WHILE SLEEPING IN DAY TIME. DR HANDY TO HAVE PT ON BIPAP WHILE SLEEPING. DR WOLFE RX METOPROLOL. PT IS RESTING COMFORTABLY, HR126, O2SAT 96%. WILL CONTINUE TO MONITOR HR/BP, URGE PT TO TAKE DEEP BREATHS.
[2020-08-27 15:38] VITALS: BP 138/73
[2020-08-27 19:20] VITALS: BP 134/77
--- NOTE | 2020-08-28 02:33 | NUR ---
PT ADMIT FROM NAVIGATING OFFICER STEMI. PT IS ALERT AND ORIENTED X4. LUNGS ARE CLEAR. ABDOMEN IS ROUND. BOWEL SOUNDS ABSENT. RIGHT MINX DRESSING DRY AND INTACT NO HEMATOMA NOTED. SCDS ON PT BILATERAL. URINAL AT BEDSIDE IF NEEDED . RECORDING POST OP VS AND SITE CHECKS ON GROIN PER PROTOCAL AT THIS TIME. WILL CONTINUE TO ASSESS AND MONIOTOR PER NURSING AT THIS TIME. PT SLEEPING AFTER PROCEDURE INTERMITENTLY AT THIS TIME.
[2020-08-28 03:26] VITALS: BP 129/63
--- NOTE | 2020-08-28 03:41 | NUR ---
Assumed pt care at 1900. Pt is alert and oriented to self. Pt is laying in bed, resting comfortable. Assessment completed and documented. No acute events overight. Scheduled meds administered to pt. Pt unable to verbalize needs. Discharge pending. Continue to monitor pt at this time.
[2020-08-28 06:03] LABS: HEMATOCRIT 38.6 % (42.0-52.0); HEMOGLOBIN 12.3 gm/dL (14.0-18.0); MCHC 31.8 g/dL (28.0-37.0); MCV 87.9 fL (80.0-100.0); RBC 4.39 mil/uL (4.50-6.00); RDW 16.2 % (10.5-14.5); WBC 18.6 thou/uL (4.0-11.0)
[2020-08-28 06:15] LABS: CALCIUM 8.8 mg/dL (8.5-10.1); CREATININE 0.5 mg/dL (0.7-1.3); MAGNESIUM 1.9 mg/dL (1.8-2.4); PHOSPHORUS 2.8 mg/dL (2.5-4.9); POTASSIUM 3.3 mmol/L (3.5-5.1)
[2020-08-28 08:00] VITALS: BP 122/75
[2020-08-28] MEDS ORDERED: PREDNISONE 10 M10 MG PO (11:24)
--- NOTE | 2020-08-28 12:22 | NUR ---
FAXED DISCHARGE ORDERS/SUMMARY AND THERAPY NOTES TO [facility]. CONFIRMED WITH PEMA/YASH THAT SHE WILL ORDER A STRETCHER VAN FOR TRANSPORTATION WITH 3L O2 AFTER 13:00. CONTACTED DAUGHTER, JOSSUE AT [phone] TO LET HER KNOW FATHER WILL BE DISCHARGED BACK TO [place] TODAY, 08/28/20. NURSING UNIT INFORMED. CHART COPY COMPLETED. [facility] P [phone]; FAS [phone]
[2020-08-28 12:29] VITALS: BP 114/64
[2020-08-28 16:10] VITALS: BP 121/66
--- NOTE | 2020-08-28 16:44 | NUR ---
ASSUMED CARE SHIFT CHANGE. ASSESMENTS CHARTED.MEDS GIVEN. VSS DENIES PAIN. O2 SATS WNL 3L O2, NAP DENIES SOB. TOLERATING PUREE DIET HONEY THICK. UOP ADEQUATE. DC ORDERS IMPLEMENTED. PT TO RETURN TO [facility]. PT LEFT UNIT VIA STRETCHER VAN WITH ALL BELONGINGS. WILL CALL REPORT. PICC LINE REMOVED WITH TIP INTACT. TELE REMOVED.
== END 2020-08-28 16:47 | DRG 870 ==
LOC: ER 13:48 → ICU 17:54 → EROBS 17:54 → ICU 19:52 → 2N 08-26 19:15
PROVIDERS: Emergency Medicine; Internal Medicine; Internal Medicine Pulmonary Disease; ADMIT Hospitalist; ATTEND Hospitalist
PROC: 05HY33Z Insertion of Infusion Device into Upper Vein, Percutaneous Approach (ICD-10-PCS; principal; 2020-08-19)
PROC: 0BH17EZ Insertion of Endotracheal Airway into Trachea, Via Natural or Artificial Opening (ICD-10-PCS; principal; 2020-08-19)
PROC: B54MZZA Ultrasonography of Right Upper Extremity Veins, Guidance (ICD-10-PCS; principal; 2020-08-19)
PROC: 5A1955Z Respiratory Ventilation, Greater than 96 Consecutive Hours (ICD-10-PCS; principal; 2020-08-19)
DX: A41.9 Sepsis, unspecified organism (principal); J69.0 Pneumonitis due to inhalation of food and vomit; E43 Unspecified severe protein-calorie malnutrition; G93.41 Metabolic encephalopathy; J96.21 Acute and chronic respiratory failure with hypoxia; J96.22 Acute and chronic respiratory failure with hypercapnia; E66.01 Morbid (severe) obesity due to excess calories; I10 Essential (primary) hypertension; K21.9 Gastro-esophageal reflux disease without esophagitis; F41.9 Anxiety disorder, unspecified; J43.9 Emphysema, unspecified; I95.9 Hypotension, unspecified; T68.XXXA Hypothermia, initial encounter; F39 Unspecified mood [affective] disorder; E87.6 Hypokalemia; R41.0 Disorientation, unspecified; Y95 Nosocomial condition; Z86.16 Personal history of COVID-19; Z68.30 Body mass index [BMI] 30.0-30.9, adult; Z87.11 Personal history of peptic ulcer disease; Z93.0 Tracheostomy status; Z87.81 Personal history of (healed) traumatic fracture; Z87.891 Personal history of nicotine dependence; Z59.0 Homelessness
CPT/HCPCS: 10078; 10081; 10203; 27000

== ENCOUNTER 2020-08-29 09:20 | Inpatient (IN) | payer OTHER ==
[~2020-08-29] VITALS: Ht 177.8 cm; Wt 80.1 kg
[~2020-08-29 09:20] MED LIST changes: +PREDNISONE 10 M10 MG PO
[2020-08-29 09:21] VITALS: BP 124/75
[2020-08-29 09:57] LABS: BE(vivo) 10.6 mmol/L (-2 to +3); HCO3 40.2 mmol/L (22.0-26.0); PCO2 80.8 mmHg (35.0-45.0); PO2 87.7 mmHg (80.0-100.0); pH 7.315 (7.360-7.450); sO2 95.5 % (92.0-98.0)
[2020-08-29 09:58] LABS: ABSOLUTE NEUTROPHILS 8.4 thou/uL (1.4-8.2); BASOPHILS 0.6 % (0.0-2.0); EOSINOPHILS 2.4 % (0.0-3.0); HEMATOCRIT 41.3 % (42.0-52.0); HEMOGLOBIN 13.2 gm/dL (14.0-18.0); LYMPHOCYTES 18.7 % (24.0-44.0); MCHC 31.9 g/dL (28.0-37.0); MCV 87.8 fL (80.0-100.0); MONOCYTES 6.9 % (1.0-8.0); PLATELET COUNT 270 thou/uL (150-400); POLYS 71.4 % (36.0-66.0); RBC 4.71 mil/uL (4.50-6.00); RDW 16.5 % (10.5-14.5); WBC 11.8 thou/uL (4.0-11.0)
[2020-08-29 10:07] LABS: ANION GAP 4 mmol/L (7-16); BUN 15 mg/dL (7-18); CHLORIDE 104 mmol/L (98-107); CO2 37 mmol/L (21-32); CREATININE 0.4 mg/dL (0.7-1.3); GLUCOSE 110 mg/dL (74-106); POTASSIUM 4.1 mmol/L (3.5-5.1); SODIUM 145 mmol/L (136-145)
[2020-08-29 10:17] LABS: ALBUMIN 2.7 g/dL (3.4-5.0); SGOT 29 U/L (15-37); SGPT 40 U/L (16-63); TOTAL BILIRUBIN 0.8 mg/dL (0.2-1.0); TOTAL PROTEIN 6.8 g/dL (6.4-8.2); TROPONIN-I <0.06 ng/mL (<0.06)
[2020-08-29 11:33] LABS: BE(vivo) 9.7 mmol/L (-2 to +3); HCO3 37.6 mmol/L (22.0-26.0); PCO2 66.2 mmHg (35.0-45.0); PO2 99.7 mmHg (80.0-100.0); pH 7.372 (7.360-7.450); sO2 97.2 % (92.0-98.0)
[2020-08-29 15:16] VITALS: BP 143/83
[2020-08-29 16:10] VITALS: BP 135/81
[2020-08-29 16:44] VITALS: BP 151/79
--- NOTE | 2020-08-29 18:30 | NUR ---
PT CARE ASSUMED AT 1630. ASSESSMENTS CHARTED. MEDICATIONS CHARTED. ERASMO IV. SINUS TACHYCARDIA; METOPROLOL GIVEN. O2 4LPM NC. PT CONFUSED; SPEECH GARBLED. ARRIVED FROM [place], 90% ON 3LPM. PLACED ON BIPAP; WRIST RESTRAINTS, CURRENTLY ON NONE. 100% 0N 4LPM NC.
[2020-08-29 19:40] VITALS: BP 146/65
--- NOTE | 2020-08-30 02:46 | NUR ---
ASSESSMENT: PT REMAIN ALERT AND CONFUSED. COOPERATIVE MOST OF THE TIME. DOES TAKE SAT PROBE OFF OCCASSIONALLY. BIPAP ON AT 0130, TOLERATING WELL. GARBLED SPEECH. C/O WANTING SOMETHING TO EAT, PT CURRENTLY NPO EXCEPT MEDS WITH SIPS OF WATER. INCONT TO BLADDER. NO BM. SR-ST PER MONITOR. VSS, AFEBRILE. CONSULT CALLED FOR PER SAGRARIO ZAVALA FOR DR. HANDY, NO ANSWER. WILL FOLLOW UP ON CONSULT IN THE AM. SLOW PROGRESS TOWARDS DC GOALS. WILL CONTINUE TO MONITOR.
[2020-08-30 03:40] LABS: HEMATOCRIT 38.3 % (42.0-52.0); HEMOGLOBIN 12.5 gm/dL (14.0-18.0); MCH 28.4 pg (26.0-34.0); MCHC 32.6 g/dL (28.0-37.0); MCV 87.1 fL (80.0-100.0); RBC 4.4 mil/uL (4.50-6.00); RDW 16.1 % (10.5-14.5); WBC 13.6 thou/uL (4.0-11.0)
[2020-08-30 03:46] LABS: CALCIUM 9.2 mg/dL (8.5-10.1); CREATININE 0.5 mg/dL (0.7-1.3); POTASSIUM 3.4 mmol/L (3.5-5.1)
[2020-08-30 04:46] VITALS: BP 120/75
[2020-08-30 08:06] VITALS: BP 121/80
[2020-08-30 11:00] VITALS: BP 134/78
--- NOTE | 2020-08-30 11:08 | NUR ---
DR. RIVERA HERE, ORDERS CHANGE FROM BIPAP TO NC. SR/ST PER TELE. INCONTINENT OF STOOL AND URINE, CONDOM CATH IN PLACE. FREQUENT CHECKS, CLOSE TO NURSES' STATION, BED ALARM, FALL PRECAUTIONS IN PLACE.
[2020-08-30 15:40] VITALS: BP 157/86
--- NOTE | 2020-08-30 16:42 | NUR ---
KEEPS TRYING TO CRAWL OUT OF BED. RESTRAINTS REAPPLIED FOR HIS SAFETY.
[2020-08-30 19:58] VITALS: BP 151/90
[2020-08-31 03:35] LABS: ABSOLUTE NEUTROPHILS 8.8 thou/uL (1.4-8.2); BASOPHILS 0.4 % (0.0-2.0); EOSINOPHILS 3.6 % (0.0-3.0); HEMATOCRIT 40.6 % (42.0-52.0); LYMPHOCYTES 16.9 % (24.0-44.0); MCH 28.1 pg (26.0-34.0); MCHC 32.1 g/dL (28.0-37.0); MCV 87.7 fL (80.0-100.0); MONOCYTES 7.2 % (1.0-8.0); PLATELET COUNT 359 thou/uL (150-400); POLYS 71.9 % (36.0-66.0); RBC 4.63 mil/uL (4.50-6.00); RDW 15.8 % (10.5-14.5); WBC 12.2 thou/uL (4.0-11.0)
[2020-08-31 03:36] LABS: CALCIUM 9.1 mg/dL (8.5-10.1); CREATININE 0.6 mg/dL (0.7-1.3); MAGNESIUM 1.6 mg/dL (1.8-2.4); POTASSIUM 3.4 mmol/L (3.5-5.1)
[2020-08-31 04:00] VITALS: BP 114/81
--- NOTE | 2020-08-31 04:18 | NUR ---
PT IS SLEEPING ON BIPAP MACHINE OVER NIGHT. LUNGS ARE CORSE THROUGHOUT. CAN BE CONFUSED AT TIMES AND CUSSING AT THE STAFF. NPO THIS EVENING.BOWEL SOUNDS ACTIVE . ABDOMEN IS ROUND AND SOFT. PT IN RESTRAINTS NOW X2. BECAUSE HE TRIES TO GET OUT OF BED . BRUISES ON NOTED ON ABDOMEN. WILL CONTINUE TO MONITOR AND ASSESS PER NURSING
--- NOTE | 2020-08-31 07:31 | NUR ---
ASSUMMED CARE OF THIS PATIENT FROM THE NIGHT NURSE, XANDER ZABALA.
--- NOTE | 2020-08-31 07:36 | EKG ---
[place] [address] [facility] [place] [address] ELECTROCARDIOGRAM REPORT Name: URIELJIMMY Room #: 202-P ADM IN M.R.#: [id number] Admission: 08/29/20 Attend Phys: Zev Arvizu MD Discharge: Date of : 58 Report #: [id number] [facility] ED Test Date: 2020-08-29 Test Time: 09:34:42 Pat Name: JIMMY TREVINO Department: Room: Gender: M Ict Analyst: cw : 1960 Requested By: Tony Booth Order Number: [id number] MD: Colten Villafuerte Measurements Intervals [place] Rate: 119 P: 47 DE: 140 QRS: 9 QRSD: 88 T: 54 QT: 351 QTc: 494 Interpretive Statements Sinus tachycardia Probable left atrial enlargement Borderline T abnormalities, anterior leads Borderline prolonged QT interval Compared to ECG 08/19/2020 14:43:39 T-wave abnormality now present Sinus rhythm no longer present Electronically Signed On 08-31-2020 7:36:39 DEPUTY ATTORNEY GENERAL by Colten Villafuerte [email or web address] <ELECTRONICALLY SIGNED> By: Colten Villafuerte MD, [facility] 08/31/20 0736 3 3 Colten Villafuerte MD, [facility] /EPI
[2020-08-31 07:37] LABS: BE(vivo) 4.3 mmol/L (-2 to +3); HCO3 31.1 mmol/L (22.0-26.0); PCO2 55.4 mmHg (35.0-45.0); PO2 102.6 mmHg (80.0-100.0); pH 7.367 (7.360-7.450); sO2 97.4 % (92.0-98.0)
[2020-08-31 08:49] VITALS: BP 142/83
--- NOTE | 2020-08-31 10:43 | NUR ---
Patient admits from [facility] with AMS/low sats. Patient recently discharged to [facility] 08/28/20. Patient alert reports "I just want to go home." Updated [facility]. Sp with dtr Luh who questions why patient cont to discharge and return to hospital? Reviewed role of casemgt. Patient to have ST eval. Patient is Covid recovered. Cont to follow for discharge planning.
[2020-08-31 12:00] VITALS: BP 133/69
--- NOTE | 2020-08-31 13:21 | NUR ---
FAXED CLINICAL UPDATE TO [facility] RECEIVED CONFIRMATION AND LEFT MSG WITH ADM.
[2020-08-31 15:30] VITALS: BP 107/57
--- NOTE | 2020-08-31 19:15 | NUR ---
PATIENT IS CUSSING AND VERBALLY ABUSIVE TO THE MINERAL RESOURCES INSPECTOR. PULLING ON CONDOM OZUNA, INCONTENT LINENS CHANGED. ATTEMPTED TO REDIRECT BUT CONTINUES TO CUSS. OTHERWISE TOLERATING DIET. PROGRESSING TOWARDS OUTCOME GOALS.
[2020-08-31 20:20] VITALS: BP 117/67
[2020-09-01 04:00] VITALS: BP 174/73
--- NOTE | 2020-09-01 06:00 | NUR ---
PT HAS PERIODS OF AGITATION AND RESTLESSNESS. KEEPS PULLING OFF EXT CATH INCONT OF URINE. ON BIPAP MOST OF NIGHT AND THEN ATTEMPTED TO PULL IT OFF. STARTED KICKING AT NURSES AND CUSSING. NOT PROGRESSING TOWARD GOALS.
[2020-09-01 08:00] VITALS: BP 123/63
--- NOTE | 2020-09-01 09:17 | NUR ---
Note Given: Y Facility List Provided:Y Facility Albert: None chosen at this time Marlene Jones NP discussed BPCI with this pt 08/31/2020
--- NOTE | 2020-09-01 10:35 | NUR ---
RECEIVED PT AT 1000. PT CURRENTLY AXOX1. PT HAS BEEN CURSING AT NURSES AND WAITER/WAITRESS INFORMAL. PREVIOUS RN PLACED PT ON BIPAP. NEW IV PLACED BY IV TEAM IN R FA. RESTRAINT PROTOCOL IN PLACE. FALL PRECAUTIONS IN PLACE. POC CONTINUE TO MONITOR BP/HR/O2. NO CONCERNS AT THIS TIME.
[2020-09-01 12:00] VITALS: BP 132/79
[2020-09-01 16:00] VITALS: BP 118/60
--- NOTE | 2020-09-01 16:14 | NUR ---
Met with dtr Marlin at bedside. She discussed with phys options of care. She reports hospice mentioned. Discussed hospice at care home and hospice house. Dtr possibly interested in hospice house eval. Interest in hospice house eval possibly in am. She has brochure. Will further discuss with phys and dtr in am
--- NOTE | 2020-09-01 18:18 | NUR ---
PT IS AXOX1, CONFUSED, IMPULSIVE. VSS, AFEBRILE. PT IS ON BIPAP 16L AT 40%. PT IS ON RESTRAINT PROTOCOL, HIGH FALL RISK. FALL PRECAUTIONS IN PLACE. DR RIVERA CONSULTED. CASE MGMT CONSULTED. PT DAUGHTER AT BEDSIDE. POC IS DISCUSSION WITH PT DAUGHTER, DR RIVERA, AND CASE MGMT FOR POSSIBLE DISCHARGE TO SNF, OR HOSPICE. CONTINUE TO MONITOR O2/BP/HR. NO CONCERNS AT THIS TIME.
[2020-09-01 19:30] VITALS: BP 163/69
[2020-09-01 19:55] VITALS: BP 103/69
[2020-09-02 02:00] VITALS: BP 108/62
[2020-09-02 03:33] VITALS: BP 108/62
--- NOTE | 2020-09-02 04:30 | NUR ---
AWAKE WEARING HIS BIPAP REMAINS IN RESTRAINTS FIGHTS STAFF AND CUSSESS AND SWERARS AT STAFF. LUNGS ARE COARSE. ABDOMEN IS ROUND AND BOWEL SOUNDS ACTIVE. FALL SOCKS ON CLOSE TOO THE DESK FOR MONITORING CLOSELY. INTCONTINENT VOIDS IN THE BED TURN AND CHANGED PER NURSING. WILL CONTINUE TO MONITOR AND ASSESS PER NURSING.
[2020-09-02 07:27] VITALS: BP 114/64
[2020-09-02 11:43] VITALS: BP 97/63
[2020-09-02 13:04] LABS: ABSOLUTE NEUTROPHILS 13.1 thou/uL (1.4-8.2); BASOPHILS 0.2 % (0.0-2.0); HEMATOCRIT 39.9 % (42.0-52.0); HEMOGLOBIN 12.8 gm/dL (14.0-18.0); LYMPHOCYTES 12.5 % (24.0-44.0); MCH 28.3 pg (26.0-34.0); MCHC 32.1 g/dL (28.0-37.0); MCV 88.2 fL (80.0-100.0); MONOCYTES 4.9 % (1.0-8.0); PLATELET COUNT 340 thou/uL (150-400); POLYS 81.4 % (36.0-66.0); RBC 4.53 mil/uL (4.50-6.00); RDW 16.3 % (10.5-14.5); WBC 16.1 thou/uL (4.0-11.0)
[2020-09-02 13:26] LABS: ALBUMIN 2.8 g/dL (3.4-5.0); CALCIUM 9.3 mg/dL (8.5-10.1); CREATININE 0.6 mg/dL (0.7-1.3); MAGNESIUM 1.6 mg/dL (1.8-2.4); POTASSIUM 3.3 mmol/L (3.5-5.1); TOTAL BILIRUBIN 0.9 mg/dL (0.2-1.0)
[2020-09-02 15:19] VITALS: BP 126/66
--- NOTE | 2020-09-02 16:24 | NUR ---
FAXED REFERRAL TO HOSPICE FOR A HOSPICE HOUSE EVAL RECEIVED CONFIRMATION AND SPOKE WITH DEVON IN INTAKE SHE WILL CALL RODRIGUEZ) TOMORROW REGARDING TIME OF EVAL. DP TO FOLLOW.
--- NOTE | 2020-09-02 16:30 | NUR ---
Spoke with dtr Marlin at bedside. Discussed hospice services, Appears she wants Hospice for her father. She has spoken to patients brother and xwife, elizabet mother. She wants to cont to think about signing outside DNR form. She will be at hospital tomorrow. Discussed hospice services at [place] and extra care to receive from hospice. emulsion operator can assist with readmits to hospital. Dtr interested in Hospice House eval. Reviewed Hospice House locations. She is interested in Hospice House eval. Requested early am house eval. Hospice to call dtr post eval. Updated phys and RN. Dtr will visit at hospital in am as well.
--- NOTE | 2020-09-02 16:48 | NUR ---
ASSUMED CARE OF PT AT SHIFT CHANGE. ASSESSMENTS CHARTED. MEDS GIVEN PER AUG. PT A&OX3 IN THE AM, BUT BECAME LESS ORIENTED THE DAY PROGRESSED. PT BECAME BELIGERENT WHEN NOT ABLE TO GET WHAT HE WANTS. CM AND HAVE DISCUSSED HOSPICE WITH FAMILY. POSSIBLE DC TO HOSPICE HOUSE OR FACILITY WITH HOSPICE TOMORROW. WILL CONTINUE TO MONITOR FOR CHANGES AND FOLLOW POC.
[2020-09-02 19:22] VITALS: BP 120/61
[2020-09-03 04:17] VITALS: BP 103/57
[2020-09-03 07:17] VITALS: BP 106/62
--- NOTE | 2020-09-03 11:00 | HC ---
[facility] [place] [address] CONSULTATION Name: JIMMY TREVINO Room #: 202-P ADM IN M.R.#: [id number] Admission: 08/29/20 Attend Phys: Zev Arvizu MD Discharge: Date of : 58 Report #: [id number] THIS REPORT FOR: cc: Juan Castelan MD, Srinath MD Barry,Reji Goldman MD ~ DATE OF SERVICE: 09/02/2020 INFECTIOUS DISEASE CONSULTATION ATTENDING PHYSICIAN: Dr. Arvizu. REASON FOR EVALUATION: Positive blood cultures. The patient with chronic respiratory failure, worsening encephalopathy with delirium. HISTORY OF PRESENT ILLNESS: Chart reviewed, patient examined. This is a 59-year-old known to myself, who I have seen within the last month, who was admitted in mid-June and again in mid July. He had an acute on chronic respiratory failure, felt to have pneumonia with ARDS. It is notable he has long-term supplemental oxygen requirements as well. He was also diagnosed with C. diff colitis and had been discharged on oral vancomycin. This is a second hospitalization since that time, presented after a very short period of time, being discharged, readmitted with delirium as well as ongoing respiratory failure, has required BiPAP intermittently and certainly with sleep. As per the evaluation, blood cultures were collected, 2 out of 2 showed growth, although different organisms; one had polymicrobial growth with Enterococcus faecalis and Staphylococcus epidermidis and second had a Dermabacter hominis. He is quite confused. At this point, he is maintained on supplemental oxygen 4 liters. He did test negative for coronavirus. Chest x-ray showed no acute process. ABGs show pH 7.367, pCO2 of 55.4, pO2 of 102.6, and FiO2 of 40%. He is empirically started on therapy with Zosyn as well as vancomycin, both IV and oral. It is difficult to obtain history from him due to his encephalopathy. ALLERGIES: None known. MEDICATIONS: Include Zosyn, clonazepam, metoprolol, pantoprazole, atorvastatin, ipratropium albuterol inhaler, vancomycin, one-time dose IV. PAST MEDICAL HISTORY: As described above, chronic respiratory failure, morbid obesity, ethanol abuse, gout, hypertension, recent C. diff colitis, delirium, likely with underlying dementia. SOCIAL HISTORY: Smokes cigarettes, a 91-yelr-gkes history. Less frequent ethanol use. No recent illicit drug use, although smoked marijuana in the past. [address] [address] CONSULTATION Name: JIMMY TREVINO Room #: 202-P [facility] IN .R.#: [id number] Admission: 08/29/20 Attend Phys: Zev Arvizu MD Discharge: Date of : 58 Report #: [id number] PHYSICAL EXAMINATION: GENERAL: Appears chronically ill, undernourished. He is in moderate distress. He is quite encephalopathic. VITAL SIGNS: Temperature 98.3, pulse 98, respirations 17, and blood pressure 97/63. SKIN: Warm, dry. HEENT: Normocephalic. Extraocular muscles are intact. Nasal cannula is in place. NECK: Supple. LUNGS: Diminished, scattered coarse breath sounds. HEART: Regular. Borderline tachycardic. I do not appreciate a murmur. ABDOMEN: Obese, somewhat firm. No apparent tenderness, no peritoneal signs. GENITOURINARY AND RECTAL: Deferred. LABORATORY DATA: Electrolytes: Sodium 147, potassium 3.3, chloride 104, bicarbonate is 39, anion gap of 4, BUN and creatinine 9 and 0.6, and glucose of 126. LFTs are unremarkable. Albumin is 2.8 and total protein 7.0, CBC: White count is 16.1, H and H 12.8 and 39.9, and platelets of 340. Recent ABGs: pH 7.315, pCO2 of 80.8, pO2 of 87.7, was on 1.5 liters. Blood cultures as described above, 1 with polymicrobial growth including Enterococcus faecalis, Staphylococcus epidermidis. Second culture with Dermabacter hominis, most likely contaminant. Chest x-ray showed no acute process, heart size within normal limits. ASSESSMENT: 1. Positive blood cultures. 2. Bcmqm-gw-dxqjltv respiratory failure with CO2 retention. 3. Marked encephalopathy may be acute on chronic component as well, more recent history of Clostridium difficile colitis. We will initiate empiric therapy, and adjust the gram-negative coverage. Continue p.o. vancomycin, though not clinically evidence of Clostridium difficile given the broad-spectrum antimicrobial therapy that certainly at risk, difficult to ascertain the etiology, perhaps multifactorial in terms of the encephalopathy. Continue to minimize various exposures to medicines which may be exacerbating. We would not pursue further diagnostic testing or therapy to treat the underlying appears to be a false positive blood culture. Add incentive spirometry when he is able. <ELECTRONICALLY SIGNED> By: Reji Macedo MD 09/03/20 1100 1421 1721 Reji Macedo MD /nt
[2020-09-03 11:08] VITALS: BP 112/58
--- NOTE | 2020-09-03 11:10 | NUR ---
[facility] nurse liason to eval onsite and visit with pt's dtr Luh at 12:30. The attending is also reaching out to an Arvizu for f/u conversation regarding code status and plan of care. Will follow.
--- NOTE | 2020-09-03 15:10 | NUR ---
call placed to Dr. Browning for medication management. orders per Dr. Arvizu available for use at this time. Dr. Browning returned call at 1510, in agreement with meds ordered, only slight frequency change. Luh, daughter has been present with her father. she is calm and providing him support although he yells out obscene language to her and to rn. providing her support.
[2020-09-03 15:18] VITALS: BP 112/59
--- NOTE | 2020-09-03 16:00 | NUR ---
resting quietly with sa02 99% on 4L/nc, resp even and unlabored. restraints removed.
--- NOTE | 2020-09-03 16:12 | NUR ---
[facility] NON-EMERGENCY AMBULANCE TRANSPORTATION FORM COMPLETED ON CHART TO [facility] [place] [address], [facility] [address]; P [phone] [facility] FORM TO BE FAXED TO [phone]; P [phone]
[2020-09-03 20:59] VITALS: BP 91/57
--- NOTE | 2020-09-04 04:49 | NUR ---
PT HAS REMAINED CALM AND SLEEPING THRU THE NOC, TOLERATING BIPAP WITH SATS IN IN UPPER 90'S, VSS, REPOSITIONED NEEDED, UNABLE TO EXPRESS NEEDS, CON'T TO MONITOR PER PPOC.
[2020-09-04 07:18] VITALS: BP 104/54
--- NOTE | 2020-09-04 11:29 | NUR ---
Pt accepted for admission to Hospice House this afternoon. [facility] arranged for 2pm transport. technical fellow here and has updated dtr Luh with plan and dc time. The attending is aware. Pt out of restraints and using iv morphine and ativan for symptom mngt with supplemental o2. Pt is confused. Outside the hospital DNR form signed by the attending and ready to be sent with the pt. Nursing to call report.
[2020-09-04 11:54] VITALS: BP 106/62
[2020-09-04] MEDS ORDERED: MORPHINE SU4 MG/1 M1 IV PUSH (12:17)
[2020-09-04] MEDS ORDERED: Transderm-Scop 1MG/7 TRANSDERM (12:17)
[2020-09-04] MEDS ORDERED: LORAZEPAM I2 MG/1 M2 SUBLING (12:17)
[2020-09-04] MEDS ORDERED: LORAZEPAM 22 MG/1 ML IV PUSH (12:17)
[2020-09-04] MEDS ORDERED: MSL20MG/ML SUBLING (12:17)
--- NOTE | 2020-09-04 12:47 | NUR ---
PT IS ALERT TO SELF AND PLACE, STATES HE KNOWS HE'S IN THE HOSPITAL (CANNOT NAME) AND WANTED TO CALL HIS DAUGHTER. PT HAS BEEN IMPULSIVE, TRYING TO REMOVE BIPAP. PT HAS BEEN IRRITABLE AND ABRASIVE, USING EXPLETIVES AND CURSING THE NURSES, ALONG WITH ATTEMPTING TO HIT THE NURSE AND PIPER INSTALLER. DR RIVERA CONSULTED. HOPSICE NURSE ASSESSED PT. POC IS TO DISCHARGE PT TO HOSPICE. CONTINUE TO MONITOR PT BP/HR/O2 SAT. FALL PRECAUTIONS IN PLACE, NO CONCERNS AT THIS TIME.
--- NOTE | 2020-09-04 13:26 | NUR ---
PATIENT IS A CANDIDATE FOR [facility] AND IS LIKELY TO ADMIT TO ACUTE REHAB ON 09/05/20 PER PHYSICIAN IN ROUNDING THIS AM. SPEECH PROFESSOR POLE MAKER THIS WEEKEND IS DANIELA. WHEN PATIENT IS READY TO ADMIT TO REHAB, PLEASE CONTACT DANIELA ON SPEECH PROFESSOR CELL PHONE [phone]. THANK YOU FOR THIS REFERRAL.
--- NOTE | 2020-09-04 13:43 | NUR ---
PT DISCHARGING TODAY TO HOSPICE HOUSE FAXED DC ORDERS/SUMMAARY SPOKE WITH EFRAÍN IN ADM SHE RECEIVED ORDERS. AMBULANCE TRANSPORT ARRANGED FOR 1400 TODAY. FAMILY NOTIFIED BY STEPHON LINN) OF DC AND TIME OF TRANSPORT. UNIT NOTIFIED,
== END 2020-09-04 14:58 | disposition hospice, home (50) | DRG 189 ==
LOC: ER 09:20 → 2N 16:10 → ER 16:10 → 2N 16:39
PROVIDERS: Emergency Medicine; Internal Medicine Pulmonary Disease; ADMIT Internal Medicine; ATTEND Internal Medicine
PROC: 5A09357 Assistance with Respiratory Ventilation, Less than 24 Consecutive Hours, Continuous Positive Airway Pressure (ICD-10-PCS; principal; 2020-08-30)
PROC: 5A09357 Assistance with Respiratory Ventilation, Less than 24 Consecutive Hours, Continuous Positive Airway Pressure (ICD-10-PCS; 2020-08-31)
PROC: 5A09357 Assistance with Respiratory Ventilation, Less than 24 Consecutive Hours, Continuous Positive Airway Pressure (ICD-10-PCS; 2020-09-01)
PROC: 5A09357 Assistance with Respiratory Ventilation, Less than 24 Consecutive Hours, Continuous Positive Airway Pressure (ICD-10-PCS; 2020-09-02)
PROC: 5A09357 Assistance with Respiratory Ventilation, Less than 24 Consecutive Hours, Continuous Positive Airway Pressure (ICD-10-PCS; 2020-09-04)
DX: J96.21 Acute and chronic respiratory failure with hypoxia (principal); G92 Toxic encephalopathy; E43 Unspecified severe protein-calorie malnutrition; E87.2 Acidosis; A04.72 Enterocolitis due to Clostridium difficile, not specified as recurrent; E51.2 Wernicke's encephalopathy; J96.22 Acute and chronic respiratory failure with hypercapnia; Z20.822 Contact with and (suspected) exposure to COVID-19; M10.9 Gout, unspecified; E66.01 Morbid (severe) obesity due to excess calories; I10 Essential (primary) hypertension; J43.9 Emphysema, unspecified; K21.9 Gastro-esophageal reflux disease without esophagitis; F17.210 Nicotine dependence, cigarettes, uncomplicated; Z66 Do not resuscitate; R53.81 Other malaise; Z51.5 Encounter for palliative care; F39 Unspecified mood [affective] disorder; R41.0 Disorientation, unspecified; G47.33 Obstructive sleep apnea (adult) (pediatric); F03.90 Unspecified dementia, unspecified severity, without behavioral disturbance, psychotic disturbance, mood disturbance, and anxiety; F04 Amnestic disorder due to known physiological condition; Z86.16 Personal history of COVID-19; Z68.25 Body mass index [BMI] 25.0-25.9, adult; Z87.81 Personal history of (healed) traumatic fracture; Z87.11 Personal history of peptic ulcer disease; Z59.0 Homelessness; Z79.899 Other long term (current) drug therapy
CPT/HCPCS: 10081